=== PATIENT | male | born 1940 | race Caucasian/White ===

== ENCOUNTER 2016-06-22 06:42 | Emergency (ER) | payer MEDICARE ==
[~2016-06-22] VITALS: Ht 175.3 cm; Wt 77.3 kg
[~2016-06-22 06:42] MED LIST: CHOL5000 PO; HYDR25TA4 PO; OMEP20TA86 PO; SIMV20TA4 PO
[2016-06-22] MEDS ORDERED: MetoCLOpramide 5 mg/mL 2 mL Inj IVPUSH ONE (06:50)
[2016-06-22] MEDS ORDERED: Ondansetron 2 mg/mL 2 mL Inj IVPUSH PRN (06:50)
[2016-06-22] MEDS ORDERED: HYDROmorphone 0.5 mg/0.5 mL iSecure Syringe IVPUSH PRN (06:50)
[2016-06-22] MEDS ORDERED: Acetaminophen IV 1,000 MG in IV Premix 1 EACH IV ONE (06:50)
[2016-06-22] MEDS ORDERED: Pantoprazole 4 mg/mL 10 mL Inj IVPUSH ONE (06:50)
[2016-06-22] MEDS ORDERED: 0.9% Sodium Chloride 1,000 ML IV ONE (06:50)
--- NOTE | 2016-06-22 06:50 | ED.REPORT ---
HPI-Abd Pain M 40 and Over Date of Service Jun 22, 2016 ED Provider: The patient is a 76 year old male with history of recurrent small bowel obstructions, upper GI bleeding due to gastritis, prostate cancer sp resection, hypertension, and hyperlipidemia, who presents to the emergency department by EMS complaining of abdominal pain that started at midnight last night. His pain is currently 6/10. He also complains of associated nausea and vomiting. He was able to have a bowel movement this morning and is able to pass gas. He has been hospitalized several times for similar symptoms and diagnosed with small bowel obstructions. He is normally treated with IV fluids and NPO until his symptoms resolved. He occasionally needs an NG tube. This is his 5th episode, he has been hospitalized at [facility] once and in [place] three times. He denies bloody emesis, fever, chills, cough, shortness of breath or chest pain. Nursing Notes Stated Complaint: ABDOMINAL PAIN Chief Complaint: Male Abdominal Pain Nursing Notes Reviewed: Yes Allergies: Coded Allergies: No Known Allergies (Verified , 06/22/16) Scheduled Cholecalciferol (Vitamin D3) (Vitamin D3) 5,000 Unit Capsule 5,000 UNIT PO DAILY Hydrochlorothiazide (Hydrochlorothiazide) 25 Mg Tablet 12.5 MG PO DAILY Omeprazole (Omeprazole) 20 Mg Tablet.dr 20 MG PO DAILY Simvastatin (Simvastatin) 20 Mg Tablet 20 MG PO DAILY General Time Seen by MD: 06:50 Chief Complaint Abdominal pain Hx Obtained From: Patient, EMS Arrived By: Ambulance Sudden in Onset?: Yes Symptom Duration: Since onset Progression since Onset: Constant Location: : Diffuse Quality: Painful Severity: Current: Moderate Severity: Maximum: Moderate Recent Healthcare: No recent doctor visit, No recent hospitalization Similar Sx Previous: Yes Past Medical History Past Medical History Hypertension Hyperlipidemia Small bowel obstruction, recurrent Prostate CA s/p resection Hx of upper GI bleeding due to gastritis Past Surgical History Prostatectomy Laparoscopic abdominal exploratory surgery Family History Noncontributory Smoking History Former Smoker Social History Lives in [place] during the winter months Other Social History: Good social support, Local resident Ambulatory Status Independent Review of Systems Constitutional: Denies: Chills, Fever Respiratory: Denies: Non-productive cough, Shortness of breath Cardiovascular: Denies: Chest pain GI: Reports: Abdominal pain, Nausea, Vomiting, Denies: Constipation, Hematemesis Complete sys rev & neg: except as marked. Physical Exam Initial Vital Signs Vital Signs (First) Date Time Temp Pulse Resp B/P Pulse Ox O2 Delivery O2 Flow Rate FiO2 06/22/16 06:52 36.4 65 18 137/74 95 Room Air Initial VS: Reviewed Head / Eyes: Atraumatic, Normocephalic, PERRL ENT: Mucous membranes moist, Conjunctiva normal, No scleral icterus Neck: Supple, Non-tender, Full range of motion Lymphatic: No lymphadenopathy Extremities: Vascular intact, Neuro intact, No swelling, No tenderness Skin: Warm, Dry, No cyanosis Neurologic: Alert, Oriented, Nonfocal Psychiatric: Mood/affect normal, Behavior normal, Normal thought content General/Constitutional: Awake, Alert Respiratory / Chest: Atraumatic, Breath sounds NL, Breath sounds = bilat, No respiratory distress, No rales, No rhonchi, No wheezing Cardiovascular: Heart rate NL, Regular rhythm, Heart sounds NL, No gallop, No murmurs, No rubs, Peripheral circulation NL Abdomen: Soft, Non-tender, No guarding, No rebound, BS normoactive, No distention, No hernia, No palpable mass, No pulsatile mass Back: Atraumatic, Inspection NL, Full range of motion, No midline vertebral tend Interpretation & Diagnostics Lab Results Interpretation Result Diagram: 06/22/16 0640 06/22/16 0640 Test 06/22/16 06:40 06/22/16 08:46 White Blood Count 8.9th/mm3 (3.8-10.1) Red Blood Count 5.79mil/mm3 (4.40-5.80) Hemoglobin 18.4g/dL (13.8-17.2) Hematocrit 54.5% (41.0-50.0) Mean Corpuscular Volume 94.1fL (81-100) Mean Corpuscular Hemoglobin 31.8pg (27.0-35.0) Mean Corpuscular Hemoglobin Concent 33.8% (32.0-37.0) Red Cell Distribution Width 14.1% (12.3-15.4) Platelet Count 186bil/L (150-400) Neutrophils (%) (Auto) 76.2% (40-74) Lymphocytes (%) (Auto) 13.0% (14-46) Monocytes (%) (Auto) 8.7% (4-12) Eosinophils (%) (Auto) 1.7% (0-5) Basophils (%) (Auto) 0.3% (0-3) Sodium Level 139mEq/L (134-144) Potassium Level 4.4mEq/L (3.5-5.2) Chloride Level 100mEq/L (97-108) Carbon Dioxide Level 22mmol/L (18-29) Blood Urea Nitrogen 19mg/dL (8-27) Creatinine 1.03mg/dL (0.76-1.27) Estimat Glomerular Filtration Rate 75mL/min (>59) Glucose Level 118mg/dL (60-99) Calcium Level 9.9mg/dL (8.5-10.1) Total Bilirubin 0.6mg/dL (0.0-1.2) Aspartate Amino Transf (AST/SGOT) 21U/L (0-50) Alanine Aminotransferase (ALT/SGPT) 17U/L (0-44) Alkaline Phosphatase 44U/L (25-160) Total Protein 7.9g/dL (6.4-8.4) Albumin 4.5g/dL (3.4-5.0) Lipase 44U/L (13-60) Urine Color Yellow (YELLOW) Urine Appearance Clear (CLEAR,HAZY) Urine pH 7.0 (5.0-8.0) Urine Specific [place] 1.015 (1.003-1.035) Urine Protein 30mg/dL (NEG,TRACE) Urine Glucose (UA) Negativemg/dL (NEGATIVE) Urine Ketones Negativemg/dL (NEGATIVE) Urine Occult Blood Trace (NEGATIVE) Urine Nitrite Negative (NEGATIVE) Urine Bilirubin Negative (NEGATIVE) Urine Urobilinogen Normalmg/dL (NORMAL) Urine Leukocyte Esterase Negative (NEGATIVE) Urine RBC 3-10/hpf (0-2) Urine WBC 0-5/hpf (0-5) Urine Epithelial Cells Occasional/hpf (NONE-MOD) Urine Crystals None seen (NONE SEEN) Urine Bacteria None/hpf (NONE-FEW) Urine Hyaline Casts Occasional/lpf (NONE) Urine Granular Casts None seen (NONE SEEN) Urine Waxy Casts None seen (NONE SEEN) Urine Red Blood Cell Casts None seen (NONE SEEN) Urine White Blood Cell Casts None seen (NONE SEEN) Urine Mucus Present (None Seen) Urine Trichomonas None seen (NONE SEEN) Urine Yeast None (NONE SEEN) Urinalysis Comment None Urine Culture Reflexed Not indicated ECG Interpretation ECG Interpretation: Normal sinus rhythm with a rate of 70 Time: 06:58 Interpreted by: ED physician X-Ray Abdominal Interpretation IMPRESSION: 1. Nonspecific bowel gas pattern with scattered small bowel air-fluid levels and mild dilatation in the left lower quadrant but with gas and stool demonstrated in the colon. Differential considerations include an early or partial obstruction, gastroenteritis, or an ileus. Dictated by: Hector Mcgee M.D. on 06/22/2016 at 8:36 Interpretation / Wet Read by: Interpret - Radiologist Re-Eval/Medical Decision Source of Hx: Old records, EMS Time of Eval: 09:21 Re-Evaluation/Progress Note: Rechecked the patient. He is feeling better. Discussed plan for road test and PO challenge. Time of Eval: 10:08 Re-Evaluation/Progress Note: The patient was able to walk around the department with no issues. He was also able to tolerate PO. Discussed plan for discharge. He understands and agrees with plan. Return to emergency department precautions were given. Counseled Regarding: Diagnosis, Lab results, Need for follow-up, When/why to return to ED Discharge & Departure Primary Impression: Generalized abdominal pain Disposition: Home Vital Signs - All Vital Signs Date Time Temp Pulse Resp B/P Pulse Ox O2 Delivery O2 Flow Rate FiO2 06/22/16 08:09 53 15 123/59 99 Room Air 06/22/16 06:52 36.4 65 18 137/74 95 Room Air )( All Prior VS Reviewed: Yes Condition: Stable Patient Instructions: Acute Abdominal Pain (ED) Additional Instructions: Thank you for entrusting us with your care today. Your labs are reassuring. Your x-ray does not show evidence of an obvious obstruction at this time. Take the Levsin (hyoscyamine) as prescribed for your cramps or spasm. Drink fluids as tolerated. Followup with your regular doctor early next week for re- evaluation. Please return to the emergency department if you develop increased pain, vomiting, fever, or any other new or concerning symptoms. You can also use hydrocodone/APAP 1-3 tabs as needed for severe pain and you could also use ondansetron as needed for nausea. Referrals: Rahul Cazares MD (PCP) Scribe Attestation Portions of this note were transcribed by Clara Roach. I, Dr. Boyer personally performed the history, physical exam and medical decision-making; I reviewed and confirmed the accuracy of the information in the transcribed note. Signed by: Letty Falcon, 06/22/2016 at 1020. copies to: Rahul Cazares MD, Kirk H MD Jun 22, 2016 06:50 Clara Roach Jun 22, 2016 06:58
[2016-06-22 06:52] VITALS: BP 137/74; PULSE 65; RESP 18; O2SAT 95
[2016-06-22 07:07] LABS: BASOPHILS % (AUTO) 0.3 % (0-3); EOSINOPHILS % (AUTO) 1.7 % (0-5); MONOCYTES % (AUTO) 8.7 % (4-12); Mean Corpuscular Hemoglobin 31.8 pg (27.0-35.0); Mean Corpuscular Volume 94.1 fL (81-100); NEUTROPHILS % (AUTO) 76.2 % (40-74); Platelet Count 186 bil/L (150-400)
[2016-06-22 08:09] VITALS: BP 123/59; PULSE 53; RESP 15; O2SAT 99
--- NOTE | 2016-06-22 08:42 | DRSVH ---
PROCEDURE: X-RAY ACUTE ABDOMINAL SERIES ([id number]) INDICATIONS: Abdominal pain TECHNIQUE: One view chest and two views of the abdomen were acquired. COMPARISON: Outside Film, CT, CT ABD PELVIS W CON, 04/05/2016, 3:43. Outside Film, CR, XR ABD ACUTE SERIES 3VW, 04/04/2016, 22:38. FINDINGS: Surgical changes and devices: Multiple surgical clips are demonstrated in the pelvis. Chest: Lungs are clear. Heart size is normal. No pleural effusions. No pneumoperitoneum. Abdomen: Bowel gas pattern demonstrates gas within small and large bowel loops. There is slight dis tention of small bowel loop in the left lower quadrant measuring up to 3.7 cm. There are scattered s mall bowel air-fluid levels. No suspicious calcifications. Bones: No suspicious bony lesions. IMPRESSION: 1. Nonspecific bowel gas pattern with scattered small bowel air-fluid levels and mild dilatation in the left lower quadrant but with gas and stool demonstrated in the colon. Differential consideration s include an early or partial obstruction, gastroenteritis, or an ileus. Dictated by: Hetcor Mcgee M.D. on 06/22/2016 at 8:36 Approved by: Hector Mcgee M.D. on 06/22/2016 at 8:41
[2016-06-22 09:28] LABS: APPEARANCE,URINE CLEAR (CLEAR,HAZY); COLOR,URINE YELLOW (YELLOW); OCCULT BLOOD,URINE TRACE (NEGATIVE); UROBILINOGEN,URINE NORMAL (NORMAL)
[2016-06-22] MEDS ORDERED: HYOS0.1218 SL (10:21)
[2016-06-22] MEDS ORDERED: ONDA4TAB9 PO (10:21)
[2016-06-22] MEDS ORDERED: HYDR-4003 PO (10:21)
[2016-06-22 10:39] VITALS: BP 122/61; PULSE 56; RESP 14; O2SAT 99
[2016-06-22] MEDS ORDERED: ACET-171 PO (12:32)
[2016-07-19] MEDS ORDERED: ASPI-973 PO (14:15)
== END 2016-06-22 10:40 | disposition home or self-care (01) ==
LOC: SED 06:42
DX: R10.84 Generalized abdominal pain (principal); I10 Essential (primary) hypertension; E78.5 Hyperlipidemia, unspecified; Z85.46 Personal history of malignant neoplasm of prostate; Z87.891 Personal history of nicotine dependence
CPT/HCPCS: 36415; 74022; 80053; 81000; 83690; 85025; 93005; 96361; 96374; 96375; 99285; J0131; J1170; J2765; J7030

== ENCOUNTER 2016-06-22 11:49 | Inpatient (IN) | payer MEDICARE ==
[~2016-06-22] VITALS: Ht 175.3 cm; Wt 78.7 kg
[~2016-06-22 11:49] MED LIST changes: +HYDR-4003 PO; +HYOS0.1218 SL; +ONDA4TAB9 PO
[2016-06-22 11:54] VITALS: BP 120/84; PULSE 80; RESP 16; O2SAT 95
--- NOTE | 2016-06-22 12:02 | ED.REPORT ---
HPI-Abd Pain M 40 and Over Date of Service Jun 22, 2016 ED Provider: The patient returns to the emergency department after being discharged a few hours prior. He was seen for generalized abdominal pain, nausea, and vomiting, all of which are consistent with previous episodes of bowel obstructions. After medication he was feeling better and able to tolerate PO. His symptoms began again about 30 minutes prior to arrival. He returns for reevaluation and treatment. Nursing Notes Stated Complaint: NAUSEA Chief Complaint: Male Abdominal Pain Nursing Notes Reviewed: Yes Allergies: Coded Allergies: No Known Allergies (Verified , 06/22/16) Scheduled Cholecalciferol (Vitamin D3) (Vitamin D3) 5,000 Unit Capsule 5,000 UNIT PO DAILY Hydrochlorothiazide (Hydrochlorothiazide) 25 Mg Tablet 12.5 MG PO DAILY Simvastatin (Simvastatin) 20 Mg Tablet 20 MG PO DAILY Scheduled PRN Acetaminophen (Acetaminophen) 500 Mg Tablet 1,000 MG PO DAILY PRN PRN For Fever General Time Seen by MD: 12:02 Chief Complaint Abdominal pain Hx Obtained From: Patient, Spouse Arrived By: Walk-in Sudden in Onset?: Yes Onset Occurred: 16 - 30 minutes ago Symptom Duration: Since onset Progression since Onset: Constant, Gradually worsening Location: : Diffuse Quality: Painful Severity: Current: Severe Severity: Maximum: Severe Recent Healthcare: No recent hospitalization, Recent doctor visit Past Medical History Past Medical History Hypertension Hyperlipidemia Small bowel obstruction, recurrent Prostate CA s/p resection Hx of upper GI bleeding due to gastritis Past Surgical History Prostatectomy Laparoscopic abdominal exploratory surgery Family History Noncontributory Smoking History Former Smoker Social History Lives in [place] during the winter months Other Social History: Good social support, Local resident Ambulatory Status Independent Review of Systems GI: Reports: Abdominal pain, Nausea, Vomiting Complete sys rev & neg: except as marked. Physical Exam Initial Vital Signs Vital Signs (First) Date Time Temp Pulse Resp B/P Pulse Ox O2 Delivery O2 Flow Rate FiO2 06/22/16 11:54 36.4 80 16 120/84 95 Room Air Initial VS: Reviewed Head / Eyes: Atraumatic, Normocephalic, PERRL ENT: Mucous membranes moist, Conjunctiva normal, No scleral icterus Neck: Supple, Non-tender, Full range of motion Lymphatic: No lymphadenopathy Extremities: Vascular intact, Neuro intact, No swelling, No tenderness Skin: Warm, Dry, No cyanosis Neurologic: Alert, Oriented, Nonfocal Psychiatric: Mood/affect normal, Behavior normal, Normal thought content General/Constitutional: Awake, Alert Appearance / Presentation: Positive: Uncomfortable Respiratory / Chest: Atraumatic, Breath sounds NL, Breath sounds = bilat, No respiratory distress, No rales, No rhonchi, No wheezing Cardiovascular: Heart rate NL, Regular rhythm, Heart sounds NL, No gallop, No murmurs, No rubs, Peripheral circulation NL Abdomen: Soft, No guarding, No rebound, BS normoactive, No distention, No hernia, No palpable mass, No pulsatile mass Tenderness/Guarding/Rebound: Positive: Tender diffuse Back: No midline vertebral tend Re-Eval/Medical Decision Source of Hx: Old records, Family Time of Eval: 12:47 Re-Evaluation/Progress Note: Discussed plan for admission. All questions were addressed. Consultation : Referral / Consult Name: Jared Hart MD Consulted With: Technology Specialist Call Returned at: 13:22 Cooker Soda: Will see patient, Agrees with eval, Agrees with plan, Accepts admit Counseled Regarding: Diagnosis, Lab results, Need for admission Discharge & Departure Primary Impression: Generalized abdominal pain Disposition: ADMITTED TO HOSPITAL Vital Signs - All Vital Signs Date Time Temp Pulse Resp B/P Pulse Ox O2 Delivery O2 Flow Rate FiO2 06/22/16 11:54 36.4 80 16 120/84 95 Room Air )( All Prior VS Reviewed: Yes Condition: Stable Referrals: Rahul Cazares MD (PCP) Scribe Attestation Portions of this note were transcribed by Clara Roach. I, Dr. Boyer personally performed the history, physical exam and medical decision-making; I reviewed and confirmed the accuracy of the information in the transcribed note. Signed by: Letty Falcon, 06/22/2016 at 1330. copies to: Rahul Cazares MD, Kirk H MD Jun 22, 2016 12:02 Clara Roach Jun 22, 2016 12:07
[2016-06-22] MEDS ORDERED: 0.9% Sodium Chloride 1,000 ML IV ONE (12:04)
[2016-06-22] MEDS ORDERED: HYDROmorphone 1 mg/mL Inj IVPUSH PRN (12:05)
[2016-06-22] MEDS ORDERED: Ondansetron 2 mg/mL 2 mL Inj IVPUSH PRN ×2 (12:05→13:50)
[2016-06-22] MEDS ORDERED: ACET-171 PO (12:32)
[2016-06-22] MEDS ORDERED: Alum-Mag Hydrox-Simeth 30 mL Suspension PO PRN (13:50)
[2016-06-22] MEDS ORDERED: hydrALAZINE 20 mg/mL Inj IV PRN (14:20)
[2016-06-22] MEDS ORDERED: MeTOProlol 1 mg/mL 5 mL Inj IVPUSH PRN (14:20)
--- NOTE | 2016-06-22 14:32 | PCM.HPMED ---
Subjective Date of Service Jun 22, 2016 Primary Provider: Admitting Physician: Primary Care Physician: Rahul Cazares MD Attending Physician: History of Present Illness: Chief Complaint: Recurrent abdominal pain with vomiting HISTORY was OBTAINED FROM PATIENT / [place] NOTES History of present illness: 76-year-old male with 3 year hx of SBO started after prostatectomy operation, now w/ recurrent epigastric abdominal pain with vomiting without blood, extensive workup including laparoscopy in [place] months ago, presented to the emergency department this morning was discharged but symptoms returned so patient returned to the ER this afternoon. NO EGD hx. never GERD/never indigestion hx. no chnage in diet/ no spoiled food ingestion. feels bloated, starts improving w/ bloating improves, never burping hx, flatus currently present. prior SBOs last 3-5+ days. In the ER vital signs stable, Dilaudid, Zofran, Ativan, saline Last hospitalized November 052015 for recurrent partial SBO seen by general surgery likely due to right upper quadrant adhesions treated with decompression NG tube and conservative management - Dr Brar, upper GI bleeding due to gastritis, Review of Systems - none of the following - F/C/sick contact / wt change/ DUTTA / lightheaded / dizziness / sob / cough / cp / diarrhea / bleeding/bruising / leg swelling / change in voiding / yeast infections / rash Ambulates by self FAMILY HX: No past family medical history of SBO or Colon cancer SOCIAL HX: 2-3 beers per day, former smoker MEDICATIONS: 1. Zocor 20 mg p.o. at bedtime. 2. Hydrochlorothiazide 12.5 mg p.o. daily. 3. Aspirin 81 mg p.o. daily. 4. Cholecalciferol 5000 units p.o. daily. no PPI, dcd by PCP PAST MEDICAL/SURGICAL HISTORY: Hypertension Hyperlipidemia Small bowel obstruction, recurrent Prostate CA s/p resection Surgical History Prostatectomy Exam on admission: on RA NAD A and O x 3 mood affect WNL NC/AT / No icterus / No injected eyes / EOMI PERRL / No pharyngeal lesions/ No oral lesions / hearing intact // dry mouth Supple neck CTAB equal chest rise / no accessory muscle use / speaks in full sentences / no RRW RRR S1 S2 / no MRG / 2+ radial pulses Soft mild tenderness epigastric, distended hypoactive BS no hepatosplenomegaly Lower extremities - No edema No cyanosis No ecchymosis No rash / No jaundice MEADOWS Symmetrical facies STUDIES: Trop normal UA negative leukocyte Estrace negative nitrite negative yeast Left shift Erythrocytosis LFT normal, lipase 44, Cr 1.03 IMAGING: PROCEDURE: X-RAY ACUTE ABDOMINAL SERIES ([id number]) INDICATIONS: Abdominal pain TECHNIQUE: One view chest and two views of the abdomen were acquired. COMPARISON: Outside Film, CT, CT ABD PELVIS W CON, 04/05/2016, 3:43. Outside Film, CR, XR ABD ACUTE SERIES 3VW, 04/04/2016, 22:38. FINDINGS: Surgical changes and devices: Multiple surgical clips are demonstrated in the pelvis. Chest: Lungs are clear. Heart size is normal. No pleural effusions. No pneumoperitoneum. Abdomen: Bowel gas pattern demonstrates gas within small and large bowel loops. There is slight distention of small bowel loop in the left lower quadrant measuring up to 3.7 cm. There are scattered small bowel air-fluid levels. No suspicious calcifications. Bones: No suspicious bony lesions. IMPRESSION: 1. Nonspecific bowel gas pattern with scattered small bowel air-fluid levels and mild dilatation in the left lower quadrant but with gas and stool demonstrated in the colon. Differential considerations include an early or partial obstruction, gastroenteritis, or an ileus. DATE OF SERVICE: 11/07/15 08 PROCEDURE: CT ABDOMEN AND PELVIS WITH CONTRAST ([id number]) INDICATIONS: known SBO recurrent sx TECHNIQUE: After the administration of oral and intravenous contrast, 5 mm thick sections acquired from the diaphragms to the symphysis. 5 mm thick coronal and sagittal reformats were performed. For radiation dose reduction, the following was used : automated exposure control, adjustment of mA and/or kV according to patient size. COMPARISON: Outside Film, CT, ABD/PELVIS W&WO CON (PNL), 05/08/2014, 19:40. [facility], CT, CT ABD PELVIS W CON, 11/04/2015, 2:37. FINDINGS: Image quality: Excellent. ABDOMEN: Lung bases: There are small bilateral low density pleural effusions and mild basilar compressive atelectasis which is new when compared with the study dated 11/04/15. Solid organs: Liver and spleen are normal in size and enhancement. 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 There is new low density perihepatic free fluid and increased perisplenic free fluid when compared with the prior study dated 11/04/15. Gallbladder is unremarkable. Biliary system is non-dilated. Pancreas enhances normally. No adrenal nodules. Kidneys are normal in size and enhancement, without hydronephrosis. There are multiple bilateral pararenal cysts. There are nonobstructive bilateral ureteral calculi. No ureterolithiasis or hydroureter. Peritoneum and bowel: The stomach is partially decompressed and partially contrast filled. The proximal small bowel is decompressed and is filled with oral contrast. The midportion of the small bowel is moderately dilated, similar in extent to the study dated 11/04/15. The proximal half of the dilated small bowel is now filled with contrast. The distal half of the dilated small bowel is filled with non-opacified fluid and solid appearing stool. The terminal ileum is decompressed, as before. There is a smooth proximal transition between decompressed and dilated bowel. A focal transition point at the distal dilated small bowel is in the right upper quadrant (series 3, image 30). Overall, the extent of mid small bowel dilatation is Maddi decrease in extent when compared with the study dated 11/04/15. The colon demonstrates normal caliber and wall thickness and is partially stool and gas filled. There are scattered colonic diverticula. No pericolonic fat stranding or free fluid to suggest acute diverticulitis. The appendix is thin walled and gas filled. No pneumatosis or pneumoperitoneum. There is a moderate amount of low-density free pelvic fluid. Nodes and vessels: No retroperitoneal or mesenteric adenopathy. Aorta and inferior vena cava are normal in caliber. Miscellaneous: There is a small fat-containing ventral hernia. PELVIS: Genitourinary: Bladder wall thickness is normal. Miscellaneous: No inguinal adenopathy. There are small bilateral fat- containing inguinal hernias. Multiple surgical clips are present throughout the pelvis. Nuchal bilateral small low density pleural effusions and compressive atelectasis. Bones: No suspicious bony lesions. Severe degenerative changes are present within the lower lumbar spine. No vertebral body compression fractures. IMPRESSION: 1. Persistent, but slightly decreased dilatation of the midportion of the small bowel when compared with the study dated 11/04/15. Oral contrast is now present within the proximal half of the dilated small bowel. The distal half of the dilated small bowel is filled with fluid and solid appearing stool suggesting delayed transit. A discrete transition point is present within the right upper quadrant and the terminal ileum is decompressed. 2. Increased free abdominal pelvic fluid when compared with the prior study likely associated with small bowel obstruction. No pneumatosis or pneumoperitoneum. 3. Normal appendix. Mild colonic diverticulosis. Active issues and reason for admission Recurrent SBO, unable to keep in oral intake, anticipate 3-5 days prior to recovery as gradual abdominal distention improves --D51/2 NS --simethicone --famotidine IV --hold NG for now Chronic issues known prior to admission, present on admission HTN DLP --home statin/hctz metoprolol/hydralazine prn Diet NPO DVT prophylaxis lovenox scd ambulate Code full Disposition inpt Assessment and plan were discussed with patient family. Allergies Coded Allergies: No Known Allergies (Verified , 06/22/16) PMH Social History Hx Alcohol Use: Yes (2-3 beers daily) Hx Substance Use: No Smoking Status: Former Smoker Exam Vital Signs Vital Sign - Last Date Time Temp Pulse Resp B/P Pulse Ox O2 Delivery O2 Flow Rate FiO2 06/22/16 11:54 36.4 80 16 120/84 95 Room Air Jared Hart MD Jun 22, 2016 13:30
--- NOTE | 2016-06-22 14:56 | NUR ---
Transfer from ER Report received from ER nurse. Awaiting patient from ER.
[2016-06-22 15:03] VITALS: BP 120/84; PULSE 80; RESP 16; O2SAT 95
[2016-06-22 15:09] VITALS: BP 130/75; PULSE 71; RESP 18; O2SAT 96
[2016-06-22 15:13] VITALS: BP 146/79; PULSE 66; RESP 18; O2SAT 96
--- NOTE | 2016-06-22 15:13 | NUR ---
To [facility] Patient arrived to [facility] approx 1510. per ER report pain medication given approx 2 hours ago. Per patient pain 6/10 and tolerable pain level 10/10. Denies nausea or vomiting at this time. Temp 97.4. BP 144/69, pulse 66.
[2016-06-22] MEDS: D5 0.45% NaCl + KCl 20 mEq/L 1,000 ML IV SCH (15:44)
[2016-06-22] MEDS: Heparin 5,000 Unit/mL Inj SUBQ SCH (17:42)
--- NOTE | 2016-06-22 17:46 | NUR ---
Mentation Alert and oriented X3. Able to make needs known. patient sleeping comfortably and no sign and symptoms of pain noted or reported by patient. Last BM early this morning per patient. Stable Vital signs.
--- NOTE | 2016-06-22 18:28 | NUR ---
pain patient c/o mild pain to abdomen and nausea. Paged Dr. Hart for pain medication orders and verbal orders received for Dilaudid PRN 0.5 mg IV every 4 hours PRN for pain. will follow orders for pain management and nausea.
[2016-06-22] MEDS ORDERED: HYDROmorphone 0.5 mg/0.5 mL iSecure Syringe IVPUSH PRN (18:35)
--- NOTE | 2016-06-22 18:59 | NUR ---
Case Management: IMM explained to patient at 1830, all questions answered. Signed original placed in chart, copy given to patient. Kita Mcmahan RN
[2016-06-22 19:39] VITALS: BP 134/79; PULSE 86; RESP 16; O2SAT 94
[2016-06-22 20:08] LABS: APPEARANCE,URINE CLEAR (CLEAR,HAZY); COLOR,URINE YELLOW (YELLOW); OCCULT BLOOD,URINE LARGE (NEGATIVE); PH,URINE 5.5 (5.0-8.0); UROBILINOGEN,URINE NORMAL (NORMAL)
[2016-06-22] MEDS: Famotidine Inj 20 MG in IV Premix 1 EACH IV SCH (22:07)
[2016-06-23] MEDS: Heparin 5,000 Unit/mL Inj SUBQ SCH ×3 (00:29→15:40)
[2016-06-23 00:48] VITALS: BP 128/68; PULSE 78; RESP 18; O2SAT 95
--- NOTE | 2016-06-23 04:27 | NUR ---
GI No c/o nausea or abdominal pain through shift, reports passing some flatus. IV fluids infusing, NPO status tolerable to pt; feeling like he would like to advance diet, pt states he will discuss this with am Md. Observed sleeping in night, adequate urine output. Hourly rounding ongoing.
[2016-06-23] MEDS: D5 0.45% NaCl + KCl 20 mEq/L 1,000 ML IV SCH (04:58)
[2016-06-23 04:59] VITALS: BP 106/64; PULSE 71; RESP 16; O2SAT 92
[2016-06-23 06:43] LABS: Mean Corpuscular Hemoglobin 32.1 pg (27.0-35.0); Mean Corpuscular Volume 97.6 fL (81-100)
[2016-06-23] MEDS: Famotidine Inj 20 MG in IV Premix 1 EACH IV SCH ×2 (07:28→20:11)
[2016-06-23 11:20] VITALS: BP 128/76; PULSE 71; RESP 18; O2SAT 96
--- NOTE | 2016-06-23 11:52 | NUR ---
Mentation Patient is alert and orientedX3. Able to make needs known. Denies abdominal pain or any discomfort. Stable vital signs with stable oxygenation. patient has been NPO and asking r/t advance diet. Notified Dr. Ramirez and aware. Stable mood. family at bed side. stable and steady on feet. patient ambulated 2-[address] with out any difficulty. Call light with in reach for safety and uses appropriately. Will continue to monitor for pain, vital signs, and safety.
[2016-06-23] MEDS ORDERED: Ketorolac 15 mg/mL Inj IV PRN (13:30)
[2016-06-23] MEDS: 0.9% Sodium Chloride 1,000 ML IV SCH (14:35)
--- NOTE | 2016-06-23 18:30 | NUR ---
Social Work: Initial Assessment Data & Assessment: See Initial Assessment. EMR reviewed. Patient is a 76 y/o male that admitted on 06/22/16 for ABD pain per H&P. SW met with patient at bedside to complete initial assesment, Discharge plan discussed, and SW role explained. Patient states that his NOK/DPOA is his , Delmi Fiore, and a copy of patient Advance Directive/DPOA is on file. Patient does not have VA or LTC benefits. Patient has a readmit score of [address] Patient see Dr. Rahul Cazares for primary care. Patient lives at home with his in a two story home. Everything that he patient needs is on the first level, but the patient has 10 steps inside the home. Patient is independent at baseline and has no DME. Patient has no SNF or HH history. Patient does drive. Patient does not have any discharge needs at the current time. SW provided contact information on [facility]. SW will continue to follow. Plan: Patient is likely to discharge home with spouse no needs via POV. SW will continue to follow. He Peo LMSW, KIKE Addendum: 06/23/16 at 1839 by HE BILLS Amended: Links added.
[2016-06-23 20:21] VITALS: BP 141/83; PULSE 55; RESP 16; O2SAT 98
--- NOTE | 2016-06-23 21:07 | PCM.PNMED ---
Subjective Date of Service Jun 23, 2016 Subjective Patient states he has no pain, very hungry. wanting to eat. Says he had a colonosocpy w/o issues 2 yrs ago. Never ad hx of gastritis or upper GI bleed. Says pain usually goes away with ER visit but it did not this time. Not currently nauseated. No other concerns. No cardiac history. denies gerd, denies hematochezia, hematemesis Exam Vital Signs Vital Sign - Last Date Time Temp Pulse Resp B/P Pulse Ox O2 Delivery O2 Flow Rate FiO2 06/23/16 04:59 36.7 71 16 106/64 92 Room Air Intake and Output 06/22/16 06/22/16 06/23/16 Cumulative From/Thru 15:00 23:00 07:00 06/22/16 11:54 - 06/23/16 06:40 Intake Total 500 ml 1924 ml 2424 ml Output Total 570 ml 570 ml Balance 500 ml 1354 ml 1854 ml Intake Oral 0 ml 0 ml IV Total 500 ml 1924 ml 2424 ml Output Urine Total 570 ml 570 ml # Bowel Movements 0 0 Exam General: NAD, laying in bed HEENT: NCAT Eyes: [place] conjunctivae. No ptosis, PERRL Neck: No masses, trachea midline, no thyromegaly Lungs: CTA with normal respiratory effort, no crackles or wheezes CV: RRR, no murmurs/rubs/gallops, normal PMI GI: Soft, non-tender with no hepatosplenomegaly. Normal bowel sounds MSK: no digital cyanosis Skin: Warm and dry. No rash, lesions or ulcers Psych: A&O X3, with appropriate affect Neuro: No focal deficits IVs and Medications IV Fluids 60 mL per hour normal saline Medications Reviewed: Medications were reviewed in detail Lab and Diagnostics Result Diagram: 06/23/1657 06/23/16556 X-Rays, CTs and MRIs [facility] [place] [address] Patient Name: LAZARA WALTON MR#: [id number] Location: [facility] [place] Ordering Phys: Oc Boyer MD Date of Service: 06/22/16 0650 PROCEDURE: X-RAY ACUTE ABDOMINAL SERIES ([id number]) INDICATIONS: Abdominal pain TECHNIQUE: One view chest and two views of the abdomen were acquired. COMPARISON: Outside Film, CT, CT ABD PELVIS W CON, 04/05/2016, 3:43. Outside Film, CR, XR ABD ACUTE SERIES 3VW, 04/04/2016, 22:38. FINDINGS: Surgical changes and devices: Multiple surgical clips are demonstrated in the pelvis. Chest: Lungs are clear. Heart size is normal. No pleural effusions. No pneumoperitoneum. Abdomen: Bowel gas pattern demonstrates gas within small and large bowel loops. There is slight distention of small bowel loop in the left lower quadrant measuring up to 3.7 cm. There are scattered small bowel air-fluid levels. No suspicious calcifications. Bones: No suspicious bony lesions. IMPRESSION: 1. Nonspecific bowel gas pattern with scattered small bowel air-fluid levels and mild dilatation in the left lower quadrant but with gas and stool demonstrated in the colon. Differential considerations include an early or partial obstruction, gastroenteritis, or an ileus. Dictated by: Hector Mcgee M.D. on 06/22/2016 at 8:36 Approved by: Hector Mcgee M.D. on 06/22/2016 at 8:41 [facility] Diagnostic [place] [address] PATIENT NAME: LAZARA WALTON MR#: [id number] LOCATION: [facility] [place] ORDERING PHYS: Chance Day MD DATE OF SERVICE: 11/07/15813 PROCEDURE: CT ABDOMEN AND PELVIS WITH CONTRAST ([id number]) INDICATIONS: known SBO recurrent sx TECHNIQUE: After the administration of oral and intravenous contrast, 5 mm thick sections acquired from the diaphragms to the symphysis. 5 mm thick coronal and sagittal reformats were performed. For radiation dose reduction, the following was used : automated exposure control, adjustment of mA and/or kV according to patient size. COMPARISON: Outside Film, CT, ABD/PELVIS W&WO CON (PNL), 05/08/2014, 19:40. [facility], CT, CT ABD PELVIS W CON, 11/04/2015, 2:37. FINDINGS: Image quality: Excellent. ABDOMEN: Lung bases: There are small bilateral low density pleural effusions and mild basilar compressive atelectasis which is new when compared with the study dated 11/04/15. Solid organs: Liver and spleen are normal in size and enhancement. 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 There is new low density perihepatic free fluid and increased perisplenic free fluid when compared with the prior study dated 11/04/15. Gallbladder is unremarkable. Biliary system is non-dilated. Pancreas enhances normally. No adrenal nodules. Kidneys are normal in size and enhancement, without hydronephrosis. There are multiple bilateral pararenal cysts. There are nonobstructive bilateral ureteral calculi. No ureterolithiasis or hydroureter. Peritoneum and bowel: The stomach is partially decompressed and partially contrast filled. The proximal small bowel is decompressed and is filled with oral contrast. The midportion of the small bowel is moderately dilated, similar in extent to the study dated 11/04/15. The proximal half of the dilated small bowel is now filled with contrast. The distal half of the dilated small bowel is filled with non-opacified fluid and solid appearing stool. The terminal ileum is decompressed, as before. There is a smooth proximal transition between decompressed and dilated bowel. A focal transition point at the distal dilated small bowel is in the right upper quadrant (series 3, image 30). Overall, the extent of mid small bowel dilatation is Maddi decrease in extent when compared with the study dated 11/04/15. The colon demonstrates normal caliber and wall thickness and is partially stool and gas filled. There are scattered colonic diverticula. No pericolonic fat stranding or free fluid to suggest acute diverticulitis. The appendix is thin walled and gas filled. No pneumatosis or pneumoperitoneum. There is a moderate amount of low-density free pelvic fluid. Nodes and vessels: No retroperitoneal or mesenteric adenopathy. Aorta and inferior vena cava are normal in caliber. Miscellaneous: There is a small fat-containing ventral hernia. PELVIS: Genitourinary: Bladder wall thickness is normal. Miscellaneous: No inguinal adenopathy. There are small bilateral fat- containing inguinal hernias. Multiple surgical clips are present throughout the pelvis. Nuchal bilateral small low density pleural effusions and compressive atelectasis. Bones: No suspicious bony lesions. Severe degenerative changes are present within the lower lumbar spine. No vertebral body compression fractures. IMPRESSION: 1. Persistent, but slightly decreased dilatation of the midportion of the small bowel when compared with the study dated 11/04/15. Oral contrast is now present within the proximal half of the dilated small bowel. The distal half of the dilated small bowel is filled with fluid and solid appearing stool suggesting delayed transit. A discrete transition point is present within the right upper quadrant and the terminal ileum is decompressed. 2. Increased free abdominal pelvic fluid when compared with the prior study likely associated with small bowel obstruction. No pneumatosis or pneumoperitoneum. 3. Normal appendix. Mild colonic diverticulosis. Dictated by: Kizzy Miguel M.D. on 11/07/2015 at 11:44 Approved by: Kizzy Miguel M.D. on 11/07/2015 at 11:44 Assessment & Plan Assessment #1 abdominal pain likely secondary to partial small bowel obstruction as evidenced by the chest x-ray and clinical presentation and previous history, present on admission -- Requested records from his previous exploratory lap surgery from [facility] -- Clear liquids, plans to advance diet to full liquids later today -- Zofran for nausea -- Pain control with ketorolac IV, morphine 2 mg every 3 when necessary -- IV fluids as above -- We will consider surgical consult if patient does not improve. As the weekend is nearing, if he does improve will consider outpatient follow-up for him to general surgery Assessment #2 hypertension, chronic -- Discontinue IV when necessary medications -- Hydrochlorothiazide by mouth home medication daily Assessment #3 hyperlipidemia, chronic: --Plan to restart homestead in tomorrow a.m. if he is tolerating diet Date of prophylaxis: Enoxaparin 40 mg subcutaneous daily Disposition: To home if patient adequately improves tomorrow GI Prophylaxis: H2 edith VTE Prophylaxis: Sub-Q Enoxaparin Marleen Ramirez DO Jun 23, 2016 08:28
[2016-06-24] MEDS: Heparin 5,000 Unit/mL Inj SUBQ SCH ×4 (00:13→23:18)
--- NOTE | 2016-06-24 03:52 | NUR ---
GI Reported increased bloating and tenderness to abdomen, denies nausea. Simethicone given with modest relief, tenderness continues, declined offer of pain medication. Hypoactive bowel tones, passing large volume of flatus. IV fluids infusing, independent activity. Hourly rounding ongoing.
[2016-06-24 05:20] VITALS: BP 160/81; PULSE 74; RESP 16; O2SAT 97
[2016-06-24 06:21] LABS: Mean Corpuscular Hemoglobin 31.5 pg (27.0-35.0); Mean Corpuscular Volume 97.4 fL (81-100)
[2016-06-24] MEDS: 0.9% Sodium Chloride 1,000 ML IV SCH (09:04)
--- NOTE | 2016-06-24 11:25 | NUR ---
ES signed by pt ISAIAH Ramos
--- NOTE | 2016-06-24 11:31 | NUR ---
Social Work - Readiness for Discharge: Data and Assessment: EMR Reviewed. Pt is on day 2 of hospitalization and was admitted for ABD pain as per pt's H&P. SW met with pt regarding discharge planning. Per RN notes pt has been moving and independent in room. Pt will be discharging home either later today or tomorrow with no needs. SW confirmed that will provide transportation via POV at time of discharge. Plan: Pt will be discharged home when medically stable via POV with no needs. ISAIAH Ramos
[2016-06-24] MEDS: D5 0.45% NaCl + KCl 20 mEq/L 1,000 ML IV SCH ×2 (12:14→20:20)
--- NOTE | 2016-06-24 13:00 | DRSVH ---
PROCEDURE: CT ABDOMEN AND PELVIS WITH CONTRAST ([id number]) INDICATIONS: abd pain TECHNIQUE: After the administration of oral and intravenous contrast, 5 mm thick sections acquired from the diap hragms to the symphysis. 5 mm thick coronal and sagittal reformats were performed. For radiation do se reduction, the following was used: automated exposure control, adjustment of mA and/or kV accordi ng to patient size. COMPARISON: Outside Film, CT, CT ABD PELVIS W CON, 04/05/2016, 3:43. FINDINGS: Image quality: Excellent. ABDOMEN: Lung bases: Lung bases are clear. Heart size is normal. Solid organs: Liver and spleen are normal in size and enhancement. Gallbladder wall is slightly pro minent as it interfaces against the liver but is not definitely inflamed and no gallstones are found. Biliary system is non-dilated. Pancreas enhances normally. No adrenal nodules. Kidneys are javed l in size and enhancement, with no change in bilaterally previously present hydronephrosis, with scat tered small collecting system calculi that are nonobstructive on the right. Within the mid left uret er there is a 3 mm calculus (series 2 image 48) in an area previously free of calculus in April of this year. Peritoneum and bowel: Stomach, small bowel, and colon loops are generally normal in caliber and wall thickness, but at the right lower quadrant several small bowel loops are mildly prominent above the upper limits of normal in size ranging between 3.2 and 3.6 cm in maximal transverse dimension. No fr ee air. There is a small amount of perihepatic free fluid measuring less than 1 cm in thickness. Nodes and vessels: No retroperitoneal or mesenteric adenopathy. Aorta and inferior vena cava are no rmal in caliber. Miscellaneous: No ventral hernias. PELVIS: Genitourinary: Bladder wall thickness is normal. Miscellaneous: No inguinal hernias or adenopathy. Scattered surgical clips within the pelvis. Ther e is a small amount of free fluid within the deep peritoneal recess adjacent to the rectosigmoid junc tion and no pelvic abscess or evidence of acute diverticulitis is found. Bones: No suspicious bony lesions. No vertebral body compression fractures. IMPRESSION: 1. Mild small bowel dilatation, however oral contrast from earlier today has transited through much of the small bowel. A point of obstruction is not seen. Ileus may explain this appearance. The sma ll bowel measures only 3.6 cm in maximal transverse dimension. No abnormal small bowel wall thickeni ng is found. 2. Bilateral mild to moderate hydronephrosis has been present in this patient, and scattered small n onobstructive right renal collecting system calculi are seen. No calculus is seen within the ureter on the right but there is a 3 mm calculus within the junction of the middle and distal thirds of the left ureter in an area previously normal in April of this year, and this may explain a portion of the current pain syndrome. Hydronephrosis on the left has not significantly increased, however. 3. Scattered surgical clips within the pelvis, no adenopathy is seen, no infection or neoplasm is id entified. Dictated by: Sunny White M.D. on 06/24/2016 at 12:50 Approved by: Sunny White M.D. on 06/24/2016 at 12:59
[2016-06-24 13:13] VITALS: BP 155/82; PULSE 57; RESP 16; O2SAT 96
--- NOTE | 2016-06-24 13:59 | CONS ---
[address] [address] CONSULTATION REPORT PATIENT: LAZARA WALTON : 1940 MR#: [id number] ADMIT: 06/22/2016 JOB ID: [id number] DATE OF SERVICE: 06/24/2016 SURGICAL CONSULTATION: The patient is seen in consultation for Dr. Marleen Ramirez. He has a history of recurrent small bowel obstructions and I was asked to see him for the same. He has a past history of a prostatectomy plus radiation for prostate cancer. But since last fall, he has had five episodes of abdominal pain which starts in the night. The pain progresses. Usually it resolves on its own, but five times he required coming to the emergency department, three times in [place], [place]. He underwent a diagnostic laparoscopy and what sounds like lysis of adhesions in [place]. His most recent episode started about 60 hours ago. He came to the emergency department, was evaluated. It was felt to be okay to be discharged but then returned shortly thereafter because of nausea and vomiting and was admitted. He took some clear liquids yesterday which led to some pain. This morning he tried some full liquids which led again to distention but he did not use the word pain but he used discomfort. He has had no nausea and vomiting while in the hospital. Yesterday and also today he has had lots of flatus and has had a bowel movement. He just completed a CT scan of the abdomen and pelvis with contrast. He has contrast in his small intestine. He does have some fluid filled loops in the right lower quadrant and pelvis that are distended and do not have contrast in them but he has some proximal small bowel loops that are not distended. His colon has gas and stool in it. I see no evidence of an intra-abdominal inflammatory process. His gallbladder may have a stone in it but he reported to me that he had an ultrasound done in [place], [place] this past winter that showed no gallstones. He has no abdominal wall or inguinal hernias. He has no free air. PAST MEDICAL HISTORY: Illnesses: 1. Prostate cancer. 2. Hypertension. 3. Hyperlipidemia. 4. Recurrent small bowel obstruction. MEDICATIONS AT HOME: 1. Zocor. 2. Hydrochlorothiazide. 3. Aspirin. 4. Cholecalciferol. ALLERGIES TO MEDICATIONS: None. HABITS: Tobacco: None. SOCIAL HISTORY: . Spends half the year in [place]. 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 REVIEW OF SYSTEMS: Otherwise negative. PHYSICAL EXAMINATION: Very pleasant, alert, appearing stated age. No acute distress. BMI 26, temperature 36.5, brachial blood pressure 160/81, pulse 74, respiratory rate 16, O2 sat room air 97%. HEENT: No scleral icterus. Neck: No appreciable masses. Lungs: Clear. Cardiac examination: Regular rhythm. Abdomen: Soft, nontender. It does not appear significantly distended to me. Extremities: No edema. Skin: Significant sun exposure. Neurologic examination: Appropriate affect. No obvious cranial nerve deficits. Moves all extremities. Gait normal. LABORATORY RESULTS: White blood cell count 4.8, hematocrit is 45.6, platelet count 148,000. Electrolytes are normal. Creatinine 1.0. CT: Official result is pending. See my discussion. IMPRESSION: Probable partial bowel obstruction. He does have noncontrast filled loops in the right lower quadrant. They are only mildly distended. But as I said above, he has proximal loops that are not distended. I think it is okay for him to have sips of clear liquids for comfort. I will order abdominal x-rays for this evening and for tomorrow morning to see if his contrast continues to march through. He does not need to go to the operating room today. One could consider, at some point, an elective repeat diagnostic laparoscopy and lysis of adhesions, but he does not need to go to the operating room today.
--- NOTE | 2016-06-24 18:52 | DRSVH ---
PROCEDURE: X-RAY ABDOMEN, ONE VIEW ([id number]) INDICATIONS: partial SBO TECHNIQUE: One view of the abdomen acquired. COMPARISON: None. FINDINGS: Surgical changes and devices: Multiple surgical clips over the pelvis. This involves the lateral pe lvic sidewalls. Some form of prior neoplasm presumably was present.. Bowel: Bowel gas pattern is normal. Soft tissues: No suspicious abdominal calcifications. Visualized solid organ contours appear normal in size. Bones: No suspicious bony lesions. IMPRESSION: Oral contrast from earlier abdomen/pelvis CT scan from earlier today has passed into the colon, and there is no plain film evidence of intestinal obstruction or perforation. Multiple surgi don clips again noted over the pelvis. Dictated by: Sunny White M.D. on 06/24/2016 at 18:49 Approved by: Sunny White M.D. on 06/24/2016 at 18:50
--- NOTE | 2016-06-24 19:19 | NUR ---
Pain Patient continues with low abdomen discomfort but declines need for pain meds. Patient without any nausea or vomiting . Pt had CT scan and abdomen xrays done today and surgeon consult.
[2016-06-24 20:40] VITALS: BP 144/84; PULSE 57; RESP 16; O2SAT 97
--- NOTE | 2016-06-24 21:12 | PCM.PNMED ---
Subjective Date of Service Jun 24, 2016 Subjective Patient is seen and examined. He states that after clear liquids last night, and this morning after he tried full liquids his lower abdomen has tightened and he had pain in the left lower quadrant. She denies nausea or vomiting, fevers or chills however. Reviewed his a 2013 colonoscopy with him which showed pandiverticulosis. No malignancy was found. Exam Vital Signs Vital Sign - Last Date Time Temp Pulse Resp B/P Pulse Ox O2 Delivery O2 Flow Rate FiO2 06/24/16 05:20 36.5 74 16 160/81 97 Room Air Intake and Output 06/23/16 06/23/16 06/24/16 Cumulative From/Thru 15:00 23:00 07:00 06/22/16 11:54 - 06/24/16 06:16 Intake Total 1930 ml 1320 ml 5674 ml Output Total 1800 ml 1000 ml 3370 ml Balance 130 ml 320 ml 2304 ml Intake Oral 1040 ml 600 ml 1640 ml IV Total 890 ml 720 ml 4034 ml Output Urine Total 1800 ml 1000 ml 3370 ml # Bowel Movements 0 1 1 Exam General: NAD, laying in bed, later was seen ambulating HEENT: NCAT Eyes: [place] conjunctivae. No ptosis Neck: No masses, trachea midline, no thyromegaly, negative for JVD Lungs: CTA with normal respiratory effort, no crackles or wheezes CV: RRR, no murmurs/rubs/gallops, normal PMI MSK: Normal gait and station, no digital cyanosis Skin: Warm and dry. No rash, lesions or ulcers Psych: A&O X3, with appropriate affect Abdomen mildly distended compared to other side especially on the right side, resonant to percussion, bowel sounds in the right upper and left lower quadrant , nontender to palpation IVs and Medications IV Fluids D5 half-normal with 20 mEq of potassium running at 100 mL/h Medications Reviewed: Medications were reviewed in detail Lab and Diagnostics Result Diagram: 06/24/1654506/24/1646 X-Rays, CTs and MRIs [facility] Diagnostic [place] [address] Patient Name: LAZARA WALTON MR#: [id number] Location: [facility] [place] Ordering Phys: Oc Boyer MD Date of Service: 06/22/16 0650 PROCEDURE: X-RAY ACUTE ABDOMINAL SERIES ([id number]) INDICATIONS: Abdominal pain TECHNIQUE: One view chest and two views of the abdomen were acquired. COMPARISON: Outside Film, CT, CT ABD PELVIS W CON, 04/05/2016, 3:43. Outside Film, CR, XR ABD ACUTE SERIES 3VW, 04/04/2016, 22:38. FINDINGS: Surgical changes and devices: Multiple surgical clips are demonstrated in the pelvis. Chest: Lungs are clear. Heart size is normal. No pleural effusions. No pneumoperitoneum. Abdomen: Bowel gas pattern demonstrates gas within small and large bowel loops. There is slight distention of small bowel loop in the left lower quadrant measuring up to 3.7 cm. There are scattered small bowel air-fluid levels. No suspicious calcifications. Bones: No suspicious bony lesions. IMPRESSION: 1. Nonspecific bowel gas pattern with scattered small bowel air-fluid levels and mild dilatation in the left lower quadrant but with gas and stool demonstrated in the colon. Differential considerations include an early or partial obstruction, gastroenteritis, or an ileus. Dictated by: Hector Mcgee M.D. on 06/22/2016 at 8:36 Approved by: Hector Mcgee M.D. on 06/22/2016 at 8:41 [facility] Diagnostic Imaging Department [place], [place] [id number] PATIENT NAME: LAZARA WALTON MR#: [id number] LOCATION: [facility] ORDERING PHYS: Chance Day MD DATE OF SERVICE: 11/07/15 0814 PROCEDURE: CT ABDOMEN AND PELVIS WITH CONTRAST ([id number]) INDICATIONS: known SBO recurrent sx TECHNIQUE: After the administration of oral and intravenous contrast, 5 mm thick sections acquired from the diaphragms to the symphysis. 5 mm thick coronal and sagittal reformats were performed. For radiation dose reduction, the following was used : automated exposure control, adjustment of mA and/or kV according to patient size. COMPARISON: Outside Film, CT, ABD/PELVIS W&WO CON (PNL), 05/08/2014, 19:40. [facility], CT, CT ABD PELVIS W CON, 11/04/2015, 2:37. FINDINGS: Image quality: Excellent. ABDOMEN: Lung bases: There are small bilateral low density pleural effusions and mild basilar compressive atelectasis which is new when compared with the study dated 11/04/15. Solid organs: Liver and spleen are normal in size and enhancement. 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 There is new low density perihepatic free fluid and increased perisplenic free fluid when compared with the prior study dated 11/04/15. Gallbladder is unremarkable. Biliary system is non-dilated. Pancreas enhances normally. No adrenal nodules. Kidneys are normal in size and enhancement, without hydronephrosis. There are multiple bilateral pararenal cysts. There are nonobstructive bilateral ureteral calculi. No ureterolithiasis or hydroureter. Peritoneum and bowel: The stomach is partially decompressed and partially contrast filled. The proximal small bowel is decompressed and is filled with oral contrast. The midportion of the small bowel is moderately dilated, similar in extent to the study dated 11/04/15. The proximal half of the dilated small bowel is now filled with contrast. The distal half of the dilated small bowel is filled with non-opacified fluid and solid appearing stool. The terminal ileum is decompressed, as before. There is a smooth proximal transition between decompressed and dilated bowel. A focal transition point at the distal dilated small bowel is in the right upper quadrant (series 3, image 30). Overall, the extent of mid small bowel dilatation is Maddi decrease in extent when compared with the study dated 11/04/15. The colon demonstrates normal caliber and wall thickness and is partially stool and gas filled. There are scattered colonic diverticula. No pericolonic fat stranding or free fluid to suggest acute diverticulitis. The appendix is thin walled and gas filled. No pneumatosis or pneumoperitoneum. There is a moderate amount of low-density free pelvic fluid. Nodes and vessels: No retroperitoneal or mesenteric adenopathy. Aorta and inferior vena cava are normal in caliber. Miscellaneous: There is a small fat-containing ventral hernia. PELVIS: Genitourinary: Bladder wall thickness is normal. Miscellaneous: No inguinal adenopathy. There are small bilateral fat- containing inguinal hernias. Multiple surgical clips are present throughout the pelvis. Nuchal bilateral small low density pleural effusions and compressive atelectasis. Bones: No suspicious bony lesions. Severe degenerative changes are present within the lower lumbar spine. No vertebral body compression fractures. IMPRESSION: 1. Persistent, but slightly decreased dilatation of the midportion of the small bowel when compared with the study dated 11/04/15. Oral contrast is now present within the proximal half of the dilated small bowel. The distal half of the dilated small bowel is filled with fluid and solid appearing stool suggesting delayed transit. A discrete transition point is present within the right upper quadrant and the terminal ileum is decompressed. 2. Increased free abdominal pelvic fluid when compared with the prior study likely associated with small bowel obstruction. No pneumatosis or pneumoperitoneum. 3. Normal appendix. Mild colonic diverticulosis. Dictated by: Kizzy Miguel M.D. on 11/07/2015 at 11:44 Approved by: Kizzy Miguel M.D. on 11/07/2015 at 11:44 Assessment & Plan Assessment #1 abdominal pain likely secondary to partial small bowel obstruction as evidenced by the chest x-ray and clinical presentation and previous history, present on admission -- Requested records from his previous exploratory lap surgery from [facility] -- Clear liquids, plans to advance diet to full liquids later today -- Zofran for nausea -- Pain control with ketorolac IV, morphine 2 mg every 3 when necessary -- IV fluids as above -- We will consider surgical consult if patient does not improve. As the weekend is nearing, if he does improve will consider outpatient follow-up for him to general surgery Dr. Angel Choi is consulted, we appreciate his recommendations. He plans no surgery at this point. -- Reviewed his records from 2008 cystoscopy,, reviewed records from his December [address] abd/pelvic W contrast. Consider nephrolithiasis as a source of his pain. Assessment #2 hypertension, chronic -- Discontinue IV when necessary medications -- Hydrochlorothiazide by mouth home medication daily. We will consider additional medication if he continues to be high Assessment #3 hyperlipidemia, chronic: --Plan to restart homestead in tomorrow a.m. if he is tolerating diet Date of prophylaxis: Enoxaparin 40 mg subcutaneous daily Disposition: To home if patient adequately improves tomorrow Pain Evaluation: Adequate Pain Control GI Prophylaxis: H2 edith VTE Prophylaxis: Sub-Q Enoxaparin Marleen Ramirez DO Jun 24, 2016 10:40
--- NOTE | 2016-06-24 22:33 | NUR ---
GI/Gu; no request for pain rx. No c/o nausea. Urine strained, no stones noted.
[2016-06-25 05:30] VITALS: BP 129/76; PULSE 63; RESP 16; O2SAT 96
[2016-06-25] MEDS: D5 0.45% NaCl + KCl 20 mEq/L 1,000 ML IV SCH ×2 (06:23→13:35)
[2016-06-25 06:52] LABS: BASOPHILS % (AUTO) 0.5 % (0-3); EOSINOPHILS % (AUTO) 4.5 % (0-5); MONOCYTES % (AUTO) 15.2 % (4-12); Mean Corpuscular Hemoglobin 31.9 pg (27.0-35.0); Mean Corpuscular Volume 95.7 fL (81-100); NEUTROPHILS % (AUTO) 55.4 % (40-74); Platelet Count 163 bil/L (150-400)
[2016-06-25] MEDS ORDERED: 0.9% Sodium Chloride 1,000 ML IV ONE (07:55)
[2016-06-25] MEDS: Heparin 5,000 Unit/mL Inj SUBQ SCH ×3 (08:31→23:54)
--- NOTE | 2016-06-25 13:18 | PROG NOTE ---
[address] [address] PROGRESS NOTE PATIENT: LAZARA WALTON : 1940 MR#: [id number] ADMIT: 06/22/2016 JOB ID: [id number] DATE: 06/25/2016 The patient is seen in followup. Last night's abdominal plain films showed contrast into the colon. He has had bowel movements and is passing gas. Has no abdominal pain, nausea or vomiting. REVIEW OF SYSTEMS: Otherwise negative. PHYSICAL EXAMINATION: Alert, no distress. He walks without any guarding or splinting. Temperature is 36.4, brachial blood pressure 129 systolic, pulse 63, respiratory rate 16, O2 sat room air 96%. Abdomen is flat, soft, nontender. IMPRESSION: Small bowel obstruction, resolved. PLAN: I discussed options with the patient. He does have a history of colon polyps and is likely due for a repeat colonoscopy. It also would be reasonable to do an endoscopy at the same time because of the possibility that there is a gastric or duodenal source for his pain. My office will contact him and schedule him for an upper endoscopy and colonoscopy. I have advanced him to full liquids and he could be discharged today if he tolerates those. He is comfortable with this plan.
[2016-06-25 13:53] VITALS: BP 151/78; PULSE 59; RESP 17; O2SAT 96
[2016-06-25] MEDS: 0.9% Sodium Chloride 1,000 ML IV SCH ×2 (15:00→23:55)
--- NOTE | 2016-06-25 15:06 | PCM.PNMED ---
Subjective Date of Service Jun 25, 2016 Subjective Patient is seen and examined. He appears very comfortable. Denies left-sided flank pain or problems with urination. Denies hematuria. This pain is well under control now. Exam Vital Signs Vital Sign - Last Date Time Temp Pulse Resp B/P Pulse Ox O2 Delivery O2 Flow Rate FiO2 06/24/16 20:40 36.7 57 16 144/84 97 Room Air Intake and Output 06/24/16 06/24/16 06/25/16 Cumulative From/Thru 15:00 23:00 07:00 06/22/16 11:54 - 06/25/16 04:54 Intake Total 1579 ml 977 ml 8230 ml Output Total 900 ml 4270 ml Balance 679 ml 977 ml 3960 ml Intake Oral 520 ml 2160 ml IV Total 1059 ml 977 ml 6070 ml Output Urine Total 900 ml 4270 ml # Bowel Movements 1 Exam Gen.: No acute distress HEENT: Normocephalic, atraumatic heart: Regular rate and rhythm no S3-S4 sounds lungs clear to auscultation bilaterally no crackles or wheezes Psych negative for anxiety Abdomen nondistended, nontender negative for flank pain on the left side Extremities negative for edema Neurological: No focal deficits IVs and Medications Medications Reviewed: Medications were reviewed in detail Lab and Diagnostics Laboratory Tests Test 06/25/16 06:15 White Blood Count 3.8th/mm3 (3.8-10.1) Red Blood Count 4.61mil/mm3 (4.40-5.80) Hemoglobin 14.7g/dL (13.8-17.2) Hematocrit 44.1% (41.0-50.0) Mean Corpuscular Volume 95.7fL (81-100) Mean Corpuscular Hemoglobin 31.9pg (27.0-35.0) Mean Corpuscular Hemoglobin Concent 33.3% (32.0-37.0) Red Cell Distribution Width 13.6% (12.3-15.4) Platelet Count 163bil/L (150-400) Neutrophils (%) (Auto) 55.4% (40-74) Lymphocytes (%) (Auto) 24.1% (14-46) Monocytes (%) (Auto) 15.2% (4-12) Eosinophils (%) (Auto) 4.5% (0-5) Basophils (%) (Auto) 0.5% (0-3) Sodium Level 140mEq/L (134-144) Potassium Level 4.1mEq/L (3.5-5.2) Chloride Level 106mEq/L (97-108) Carbon Dioxide Level 24mmol/L (18-29) Blood Urea Nitrogen 8mg/dL (8-27) Creatinine 0.95mg/dL (0.76-1.27) Estimat Glomerular Filtration Rate 82mL/min (>59) Glucose Level 114mg/dL (60-99) Calcium Level 8.9mg/dL (8.5-10.1) Total Bilirubin 0.8mg/dL (0.0-1.2) Aspartate Amino Transf (AST/SGOT) 15U/L (0-50) Alanine Aminotransferase (ALT/SGPT) 11U/L (0-44) Alkaline Phosphatase 33U/L (25-160) Total Protein 5.8g/dL (6.4-8.4) Albumin 3.6g/dL (3.4-5.0) Laboratory Tests Test 06/25/16 06:15 White Blood Count 3.8th/mm3 (3.8-10.1) Red Blood Count 4.61mil/mm3 (4.40-5.80) Hemoglobin 14.7g/dL (13.8-17.2) Hematocrit 44.1% (41.0-50.0) Mean Corpuscular Volume 95.7fL (81-100) Mean Corpuscular Hemoglobin 31.9pg (27.0-35.0) Mean Corpuscular Hemoglobin Concent 33.3% (32.0-37.0) Red Cell Distribution Width 13.6% (12.3-15.4) Platelet Count 163bil/L (150-400) Neutrophils (%) (Auto) 55.4% (40-74) Lymphocytes (%) (Auto) 24.1% (14-46) Monocytes (%) (Auto) 15.2% (4-12) Eosinophils (%) (Auto) 4.5% (0-5) Basophils (%) (Auto) 0.5% (0-3) Sodium Level 140mEq/L (134-144) Potassium Level 4.1mEq/L (3.5-5.2) Chloride Level 106mEq/L (97-108) Carbon Dioxide Level 24mmol/L (18-29) Blood Urea Nitrogen 8mg/dL (8-27) Creatinine 0.95mg/dL (0.76-1.27) Estimat Glomerular Filtration Rate 82mL/min (>59) Glucose Level 114mg/dL (60-99) Calcium Level 8.9mg/dL (8.5-10.1) Total Bilirubin 0.8mg/dL (0.0-1.2) Aspartate Amino Transf (AST/SGOT) 15U/L (0-50) Alanine Aminotransferase (ALT/SGPT) 11U/L (0-44) Alkaline Phosphatase 33U/L (25-160) Total Protein 5.8g/dL (6.4-8.4) Albumin 3.6g/dL (3.4-5.0) Result Diagram: 06/24/1646 06/24/16 0546 X-Rays, CTs and MRIs [facility] Diagnostic Imaging Department [place], [place] [id number] Patient Name: LAZARA WALTON MR#: [id number] Location: [facility] [place] Ordering Phys: Oc Boyer MD Date of Service: 06/22/16 0650 PROCEDURE: X-RAY ACUTE ABDOMINAL SERIES ([id number]) INDICATIONS: Abdominal pain TECHNIQUE: One view chest and two views of the abdomen were acquired. COMPARISON: Outside Film, CT, CT ABD PELVIS W CON, 04/05/2016, 3:43. Outside Film, CR, XR ABD ACUTE SERIES 3VW, 04/04/2016, 22:38. FINDINGS: Surgical changes and devices: Multiple surgical clips are demonstrated in the pelvis. Chest: Lungs are clear. Heart size is normal. No pleural effusions. No pneumoperitoneum. Abdomen: Bowel gas pattern demonstrates gas within small and large bowel loops. There is slight distention of small bowel loop in the left lower quadrant measuring up to 3.7 cm. There are scattered small bowel air-fluid levels. No suspicious calcifications. Bones: No suspicious bony lesions. IMPRESSION: 1. Nonspecific bowel gas pattern with scattered small bowel air-fluid levels and mild dilatation in the left lower quadrant but with gas and stool demonstrated in the colon. Differential considerations include an early or partial obstruction, gastroenteritis, or an ileus. Dictated by: Hector Mcgee M.D. on 06/22/2016 at 8:36 Approved by: Hector Mcgee M.D. on 06/22/2016 at 8:41 [facility] Diagnostic Imaging Department [place] [address] PATIENT NAME: LAZARA WALTON MR#: [id number] [place] [facility] [place]YS: Chance Day MD DATE OF SERVICE: 11/07/15 0814 PROCEDURE: CT ABDOMEN AND PELVIS WITH CONTRAST ([id number]) INDICATIONS: known SBO recurrent sx TECHNIQUE: After the administration of oral and intravenous contrast, 5 mm thick sections acquired from the diaphragms to the symphysis. 5 mm thick coronal and sagittal reformats were performed. For radiation dose reduction, the following was used : automated exposure control, adjustment of mA and/or kV according to patient size. COMPARISON: Outside Film, CT, ABD/PELVIS W&WO CON (PN), 05/08/2014, 19:40. [facility], CT, CT ABD PELVIS W CON, 11/04/2015, 2:37. FINDINGS: Image quality: Excellent. ABDOMEN: Lung bases: There are small bilateral low density pleural effusions and mild basilar compressive atelectasis which is new when compared with the study dated 11/04/15. Solid organs: Liver and spleen are normal in size and enhancement. 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 There is new low density perihepatic free fluid and increased perisplenic free fluid when compared with the prior study dated 11/04/15. Gallbladder is unremarkable. Biliary system is non-dilated. Pancreas enhances normally. No adrenal nodules. Kidneys are normal in size and enhancement, without hydronephrosis. There are multiple bilateral pararenal cysts. There are nonobstructive bilateral ureteral calculi. No ureterolithiasis or hydroureter. Peritoneum and bowel: The stomach is partially decompressed and partially contrast filled. The proximal small bowel is decompressed and is filled with oral contrast. The midportion of the small bowel is moderately dilated, similar in extent to the study dated 11/04/15. The proximal half of the dilated small bowel is now filled with contrast. The distal half of the dilated small bowel is filled with non-opacified fluid and solid appearing stool. The terminal ileum is decompressed, as before. There is a smooth proximal transition between decompressed and dilated bowel. A focal transition point at the distal dilated small bowel is in the right upper quadrant (series 3, image 30). Overall, the extent of mid small bowel dilatation is Maddi decrease in extent when compared with the study dated 11/04/15. The colon demonstrates normal caliber and wall thickness and is partially stool and gas filled. There are scattered colonic diverticula. No pericolonic fat stranding or free fluid to suggest acute diverticulitis. The appendix is thin walled and gas filled. No pneumatosis or pneumoperitoneum. There is a moderate amount of low-density free pelvic fluid. Nodes and vessels: No retroperitoneal or mesenteric adenopathy. Aorta and inferior vena cava are normal in caliber. Miscellaneous: There is a small fat-containing ventral hernia. PELVIS: Genitourinary: Bladder wall thickness is normal. Miscellaneous: No inguinal adenopathy. There are small bilateral fat- containing inguinal hernias. Multiple surgical clips are present throughout the pelvis. Nuchal bilateral small low density pleural effusions and compressive atelectasis. Bones: No suspicious bony lesions. Severe degenerative changes are present within the lower lumbar spine. No vertebral body compression fractures. IMPRESSION: 1. Persistent, but slightly decreased dilatation of the midportion of the small bowel when compared with the study dated 11/04/15. Oral contrast is now present within the proximal half of the dilated small bowel. The distal half of the dilated small bowel is filled with fluid and solid appearing stool suggesting delayed transit. A discrete transition point is present within the right upper quadrant and the terminal ileum is decompressed. 2. Increased free abdominal pelvic fluid when compared with the prior study likely associated with small bowel obstruction. No pneumatosis or pneumoperitoneum. 3. Normal appendix. Mild colonic diverticulosis. Dictated by: Kizzy Miguel M.D. on 11/07/2015 at 11:44 Approved by: Kizzy Miguel M.D. on 11/07/2015 at 11:44 Assessment & Plan Assessment #1 abdominal pain likely secondary to partial small bowel obstruction as evidenced by the chest x-ray and clinical presentation and previous history, present on admission -- Requested records from his previous exploratory lap surgery from [facility], reviewed the records. Shows that he had a adhesion lysis in December 2015. Also had a cystoscopy in 2008. -- Diet is advanced to cardiac diet tonight -- Zofran for nausea -- Pain control with ibuprofen and Tylenol -- We will consider surgical consult if patient does not improve. Gen. Surgery Dr. Angel Choi is consulted, we appreciate his recommendations. He plans no surgery at this point. He signed off today. Would like to set up a colonoscopy and EGD appointment for the patient as outpatient. His office will call the patient decided that the appointment. -- CT abd/pelvic W contrast was ordered yesterday. Showed ileus but a f/u abd x -ray did show CT contrast clearing through the bowel Nephrolithiasis, acute: Left-sided ureteral stone 3 mm in size plus mild-to- moderate b/l hydronephrosis, Ureteral lithiasis on the left ureter as evidenced by the CT. -- Strain all urine, accurate I&O's -- Continue normal saline 100 mL/h to hydrate him better -- tamsulosin daily 0.4 mg -- Discussed case with urology on-call Dr. Rae turner, she agrees that patient can follow-up with urology outpatient. Patient states he has a follow-up appointment that he missed because of this hospitalization, because he is due to see his urologist anyways for his six-month follow-up for his prostate cancer status (post prostatectomy)., -- Staff have been straining his urine but has not found any stones -- He has no symptoms today from this Assessment #2 hypertension, chronic -- Hydrochlorothiazide is increased to 25 mg due to elevated blood pressure during this admission Assessment #3 hyperlipidemia, chronic: -- Restarted his statin Date of prophylaxis: Enoxaparin 40 mg subcutaneous daily Disposition: To home if patient adequately improves tomorrow Pain Evaluation: Adequate Pain Control GI Prophylaxis: H2 edith VTE Prophylaxis: Sub-Q Enoxaparin Marleen Ramirez DO Jun 25, 2016 05:43
--- NOTE | 2016-06-25 17:41 | NUR ---
GI/ Urine strained; no stones noted. Denies abd pain, nausea. Advanced to general diet. Tolerates chicken, mashed potatoes and bread.
[2016-06-25 20:20] VITALS: BP 144/80; PULSE 69; RESP 18; O2SAT 97
[2016-06-25] MEDS ORDERED: HYDR25TA4 PO (21:56)
[2016-06-25] MEDS ORDERED: TAMS0.4C98 PO (21:56)
--- NOTE | 2016-06-25 22:40 | NUR ---
/GI; urine strained, without stones noted. No c/o nausea or vomiting. No request for pain rx. States is hoping to be discharged tomorrow if all goes well with his eating.
[2016-06-26 05:00] VITALS: BP 143/78; PULSE 66; RESP 16; O2SAT 97
--- NOTE | 2016-06-26 05:22 | NUR ---
PSYCH; slept well during the night without c/o.
[2016-06-26] MEDS ORDERED: HYDR25TA4 PO (07:41)
[2016-06-26] MEDS ORDERED: TAMS0.4C98 PO (07:41)
--- NOTE | 2016-06-26 07:44 | PCM.DIMED ---
Discharge Instructions Date of Service Jun 26, 2016 Dates of Hospitalization Jun 22, 2016 at 13:37 Diet Heart Healthy Activity No restrictions Call your provider Fever or Chills, Shortness of breath, Bleeding, Chest pain, Vomitting, Excessive diarrhea, Weakness (unilateral), Other Patient Instructions Follow-up plan F/U BMP X1 prior to f/u with PCP F/U with PCP in 2-3 weeks F/U with Dr. Angel Choi in the next few weeks ( his office will call you to set up Colonocopy and EGD appointments) F/U with your Urologist as previously planned Marleen Ramirez DO Jun 26, 2016 07:44
--- NOTE | 2016-06-26 07:55 | PCM.DC.MED ---
Discharge Summary Date of Service Jun 26, 2016 Dates of Hospitalization Date of Hospital Admission Jun 22, 2016 at 13:37 Date of Discharge: Jun 26, 2016 Providers: Admitting Physician: Jared Hart MD Primary Care Physician: Rahul Cazares MD Attending Physician: Jared Hart MD Diagnosis at Time of Discharge Diagnosis at Time of Discharge Ileus, Partial Small Bowel Obstruction, ureterolithiasis, HTN, prostate cancer s /p prostatectomy Consultations General Surgery Procedures XRay, CTs & MRIs [facility] Diagnostic Imaging Department [place], [place] [id number] Patient Name: LAZARA WALTON MR#: [id number] Location: [facility] [place] Ordering Phys: Oc Boyer MD Date of Service: 06/22/16 0650 PROCEDURE: X-RAY ACUTE ABDOMINAL SERIES ([id number]) INDICATIONS: Abdominal pain TECHNIQUE: One view chest and two views of the abdomen were acquired. COMPARISON: Outside Film, CT, CT ABD PELVIS W CON, 04/05/2016, 3:43. Outside Film, CR, XR ABD ACUTE SERIES 3VW, 04/04/2016, 22:38. FINDINGS: Surgical changes and devices: Multiple surgical clips are demonstrated in the pelvis. Chest: Lungs are clear. Heart size is normal. No pleural effusions. No pneumoperitoneum. Abdomen: Bowel gas pattern demonstrates gas within small and large bowel loops. There is slight distention of small bowel loop in the left lower quadrant measuring up to 3.7 cm. There are scattered small bowel air-fluid levels. No suspicious calcifications. Bones: No suspicious bony lesions. IMPRESSION: 1. Nonspecific bowel gas pattern with scattered small bowel air-fluid levels and mild dilatation in the left lower quadrant but with gas and stool demonstrated in the colon. Differential considerations include an early or partial obstruction, gastroenteritis, or an ileus. Dictated by: Hector Mcgee M.D. on 06/22/2016 at 8:36 Approved by: Hector Mcgee M.D. on 06/22/2016 at 8:41 [facility] Diagnostic Imaging Department [place], [place] [id number] PATIENT NAME: LAZARA WALTON MR#: [id number] LOCATION: [facility] [place] ORDERING PHYS: Chance Day MD DATE OF SERVICE: 11/07/15813 PROCEDURE: CT ABDOMEN AND PELVIS WITH CONTRAST ([id number]) INDICATIONS: known SBO recurrent sx TECHNIQUE: After the administration of oral and intravenous contrast, 5 mm thick sections acquired from the diaphragms to the symphysis. 5 mm thick coronal and sagittal reformats were performed. For radiation dose reduction, the following was used : automated exposure control, adjustment of mA and/or kV according to patient size. COMPARISON: Outside Film, CT, ABD/PELVIS W&WO CON ([facility]), 05/08/2014, 19:40. [facility], CT, CT ABD PELVIS W CON, 11/04/2015, 2:37. FINDINGS: Image quality: Excellent. ABDOMEN: Lung bases: There are small bilateral low density pleural effusions and mild basilar compressive atelectasis which is new when compared with the study dated 11/04/15. Solid organs: Liver and spleen are normal in size and enhancement. 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 There is new low density perihepatic free fluid and increased perisplenic free fluid when compared with the prior study dated 11/04/15. Gallbladder is unremarkable. Biliary system is non-dilated. Pancreas enhances normally. No adrenal nodules. Kidneys are normal in size and enhancement, without hydronephrosis. There are multiple bilateral pararenal cysts. There are nonobstructive bilateral ureteral calculi. No ureterolithiasis or hydroureter. Peritoneum and bowel: The stomach is partially decompressed and partially contrast filled. The proximal small bowel is decompressed and is filled with oral contrast. The midportion of the small bowel is moderately dilated, similar in extent to the study dated 11/04/15. The proximal half of the dilated small bowel is now filled with contrast. The distal half of the dilated small bowel is filled with non-opacified fluid and solid appearing stool. The terminal ileum is decompressed, as before. There is a smooth proximal transition between decompressed and dilated bowel. A focal transition point at the distal dilated small bowel is in the right upper quadrant (series 3, image 30). Overall, the extent of mid small bowel dilatation is Maddi decrease in extent when compared with the study dated 11/04/15. The colon demonstrates normal caliber and wall thickness and is partially stool and gas filled. There are scattered colonic diverticula. No pericolonic fat stranding or free fluid to suggest acute diverticulitis. The appendix is thin walled and gas filled. No pneumatosis or pneumoperitoneum. There is a moderate amount of low-density free pelvic fluid. Nodes and vessels: No retroperitoneal or mesenteric adenopathy. Aorta and inferior vena cava are normal in caliber. Miscellaneous: There is a small fat-containing ventral hernia. PELVIS: Genitourinary: Bladder wall thickness is normal. Miscellaneous: No inguinal adenopathy. There are small bilateral fat- containing inguinal hernias. Multiple surgical clips are present throughout the pelvis. Nuchal bilateral small low density pleural effusions and compressive atelectasis. Bones: No suspicious bony lesions. Severe degenerative changes are present within the lower lumbar spine. No vertebral body compression fractures. IMPRESSION: 1. Persistent, but slightly decreased dilatation of the midportion of the small bowel when compared with the study dated 11/04/15. Oral contrast is now present within the proximal half of the dilated small bowel. The distal half of the dilated small bowel is filled with fluid and solid appearing stool suggesting delayed transit. A discrete transition point is present within the right upper quadrant and the terminal ileum is decompressed. 2. Increased free abdominal pelvic fluid when compared with the prior study likely associated with small bowel obstruction. No pneumatosis or pneumoperitoneum. 3. Normal appendix. Mild colonic diverticulosis. Dictated by: Kizzy Miguel M.D. on 11/07/2015 at 11:44 Approved by: Kizzy Miguel M.D. on 11/07/2015 at 11:44 Brief History Chief Complaint: Recurrent abdominal pain with vomiting HISTORY was OBTAINED FROM PATIENT / [employer] NOTES History of present illness: 76-year-old male with 3 year hx of SBO started after prostatectomy operation, now w/ recurrent epigastric abdominal pain with vomiting without blood, extensive workup including laparoscopy in [place] months ago, presented to the emergency department this morning was discharged but symptoms returned so patient returned to the ER this afternoon. NO EGD hx. never GERD/never indigestion hx. no chnage in diet/ no spoiled food ingestion. feels bloated, starts improving w/ bloating improves, never burping hx, flatus currently present. prior SBOs last 3-5+ days. In the ER vital signs stable, Dilaudid, Zofran, Ativan, saline Last hospitalized November 052015 for recurrent partial SBO seen by general surgery likely due to right upper quadrant adhesions treated with decompression NG tube and conservative management - Dr Brar, upper GI bleeding due to gastritis, Review of Systems - none of the following - F/C/sick contact / wt change/ DUTTA / lightheaded / dizziness / sob / cough / cp / diarrhea / bleeding/bruising / leg swelling / change in voiding / yeast infections / rash Ambulates by self FAMILY HX: No past family medical history of SBO or Colon cancer SOCIAL HX: 2-3 beers per day, former smoker MEDICATIONS: 1. Zocor 20 mg p.o. at bedtime. 2. Hydrochlorothiazide 12.5 mg p.o. daily. 3. Aspirin 81 mg p.o. daily. 4. Cholecalciferol 5000 units p.o. daily. no PPI, dcd by PCP PAST MEDICAL/SURGICAL HISTORY: Hypertension Hyperlipidemia Small bowel obstruction, recurrent Prostate CA s/p resection Surgical History Prostatectomy Exam on admission: on RA NAD A and O x 3 mood affect WNL NC/AT / No icterus / No injected eyes / EOMI PERRL / No pharyngeal lesions/ No oral lesions / hearing intact // dry mouth Supple neck CTAB equal chest rise / no accessory muscle use / speaks in full sentences / no RRW RRR S1 S2 / no MRG / 2+ radial pulses Soft mild tenderness epigastric, distended hypoactive BS no hepatosplenomegaly Lower extremities - No edema No cyanosis No ecchymosis No rash / No jaundice MEADOWS Symmetrical facies STUDIES: Trop normal UA negative leukocyte Estrace negative nitrite negative yeast Left shift Erythrocytosis LFT normal, lipase 44, Cr 1.03 IMAGING: PROCEDURE: X-RAY ACUTE ABDOMINAL SERIES ([id number]) INDICATIONS: Abdominal pain TECHNIQUE: One view chest and two views of the abdomen were acquired. COMPARISON: Outside Film, CT, CT ABD PELVIS W CON, 04/05/2016, 3:43. Outside Film, CR, XR ABD ACUTE SERIES 3VW, 04/04/2016, 22:38. FINDINGS: Surgical changes and devices: Multiple surgical clips are demonstrated in the pelvis. Chest: Lungs are clear. Heart size is normal. No pleural effusions. No pneumoperitoneum. Abdomen: Bowel gas pattern demonstrates gas within small and large bowel loops. There is slight distention of small bowel loop in the left lower quadrant measuring up to 3.7 cm. There are scattered small bowel air-fluid levels. No suspicious calcifications. Bones: No suspicious bony lesions. IMPRESSION: 1. Nonspecific bowel gas pattern with scattered small bowel air-fluid levels and mild dilatation in the left lower quadrant but with gas and stool demonstrated in the colon. Differential considerations include an early or partial obstruction, gastroenteritis, or an ileus. DATE OF SERVICE: 11/07/15 0814 PROCEDURE: CT ABDOMEN AND PELVIS WITH CONTRAST ([id number]) INDICATIONS: known SBO recurrent sx TECHNIQUE: After the administration of oral and intravenous contrast, 5 mm thick sections acquired from the diaphragms to the symphysis. 5 mm thick coronal and sagittal reformats were performed. For radiation dose reduction, the following was used : automated exposure control, adjustment of mA and/or kV according to patient size. COMPARISON: Outside Film, CT, ABD/PELVIS W&WO CON ([facility]), 05/08/2014, 19:40. [facility], CT, CT ABD PELVIS W CON, 11/04/2015, 2:37. FINDINGS: Image quality: Excellent. ABDOMEN: Lung bases: There are small bilateral low density pleural effusions and mild basilar compressive atelectasis which is new when compared with the study dated 11/04/15. Solid organs: Liver and spleen are normal in size and enhancement. 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 There is new low density perihepatic free fluid and increased perisplenic free fluid when compared with the prior study dated 11/04/15. Gallbladder is unremarkable. Biliary system is non-dilated. Pancreas enhances normally. No adrenal nodules. Kidneys are normal in size and enhancement, without hydronephrosis. There are multiple bilateral pararenal cysts. There are nonobstructive bilateral ureteral calculi. No ureterolithiasis or hydroureter. Peritoneum and bowel: The stomach is partially decompressed and partially contrast filled. The proximal small bowel is decompressed and is filled with oral contrast. The midportion of the small bowel is moderately dilated, similar in extent to the study dated 11/04/15. The proximal half of the dilated small bowel is now filled with contrast. The distal half of the dilated small bowel is filled with non-opacified fluid and solid appearing stool. The terminal ileum is decompressed, as before. There is a smooth proximal transition between decompressed and dilated bowel. A focal transition point at the distal dilated small bowel is in the right upper quadrant (series 3, image 30). Overall, the extent of mid small bowel dilatation is Maddi decrease in extent when compared with the study dated 11/04/15. The colon demonstrates normal caliber and wall thickness and is partially stool and gas filled. There are scattered colonic diverticula. No pericolonic fat stranding or free fluid to suggest acute diverticulitis. The appendix is thin walled and gas filled. No pneumatosis or pneumoperitoneum. There is a moderate amount of low-density free pelvic fluid. Nodes and vessels: No retroperitoneal or mesenteric adenopathy. Aorta and inferior vena cava are normal in caliber. Miscellaneous: There is a small fat-containing ventral hernia. PELVIS: Genitourinary: Bladder wall thickness is normal. Miscellaneous: No inguinal adenopathy. There are small bilateral fat- containing inguinal hernias. Multiple surgical clips are present throughout the pelvis. Nuchal bilateral small low density pleural effusions and compressive atelectasis. Bones: No suspicious bony lesions. Severe degenerative changes are present within the lower lumbar spine. No vertebral body compression fractures. IMPRESSION: 1. Persistent, but slightly decreased dilatation of the midportion of the small bowel when compared with the study dated 11/04/15. Oral contrast is now present within the proximal half of the dilated small bowel. The distal half of the dilated small bowel is filled with fluid and solid appearing stool suggesting delayed transit. A discrete transition point is present within the right upper quadrant and the terminal ileum is decompressed. 2. Increased free abdominal pelvic fluid when compared with the prior study likely associated with small bowel obstruction. No pneumatosis or pneumoperitoneum. 3. Normal appendix. Mild colonic diverticulosis. Active issues and reason for admission Recurrent SBO, unable to keep in oral intake, anticipate 3-5 days prior to recovery as gradual abdominal distention improves --D51/2 NS --simethicone --famotidine IV --hold NG for now Chronic issues known prior to admission, present on admission HTN DLP --home statin/hctz metoprolol/hydralazine prn Diet NPO DVT prophylaxis lovenox scd ambulate Code full Disposition inpt Assessment and plan were discussed with patient family. Hospital Course Assessment #1 abdominal pain likely secondary to partial small bowel obstruction as evidenced by the chest x-ray and clinical presentation and previous history, present on admission -- Requested records from his previous exploratory lap surgery from [facility], reviewed the records. Shows that he had a adhesion lysis in December 2015. Also had a cystoscopy in 2008. -- Diet is advanced to cardiac diet tonight -- Zofran for nausea -- Pain control with ibuprofen and Tylenol -- We will consider surgical consult if patient does not improve. Gen. Surgery Dr. Angel Choi is consulted, we appreciate his recommendations. He plans no surgery at this point. He signed off today. Would like to set up a colonoscopy and EGD appointment for the patient as outpatient. His office will call the patient decided that the appointment. -- CT abd/pelvic W contrast was ordered yesterday. Showed ileus but a f/u abd x -ray did show CT contrast clearing through the bowel -- Patient is tolerating normal diet. Completely symptom-free, is ambulating in the pelvis Nephrolithiasis, acute: Left-sided ureteral stone 3 mm in size plus mild-to- moderate b/l hydronephrosis, Ureteral lithiasis on the left ureter as evidenced by the CT. -- Strain all urine, accurate I&O's -- Continue normal saline 100 mL/h to hydrate him better -- tamsulosin daily 0.4 mg -- Discussed case with urology on-call Dr. Rae turner, she agrees that patient can follow-up with urology outpatient. Patient states he has a follow-up appointment that he missed because of this hospitalization, because he is due to see his urologist anyways for his six-month follow-up for his prostate cancer status (post prostatectomy)., -- Staff have been straining his urine but has not found any stones -- He has no symptoms today from this Assessment #2 hypertension, chronic -- Hydrochlorothiazide is increased to 25 mg due to elevated blood pressure during this admission. Follow up BMP. To follow-up with PCP in the next few weeks is given Assessment #3 hyperlipidemia, chronic: -- Restarted his statin Date of prophylaxis: Enoxaparin 40 mg subcutaneous daily Disposition: To home if patient adequately improves tomorrow Exam Vital Signs (Last) Date Time Temp Pulse Resp B/P Pulse Ox O2 Delivery O2 Flow Rate FiO2 06/26/16 05:00 36.4 66 16 143/78 97 Room Air Exam Physical exam: Gen.: No acute distress HEENT normocephalic atraumatic Heart regular rate and rhythm no S3-S4 murmurs Lungs clear to auscultation bilaterally no crackles or wheezes Abdomen soft, nontender, nondistended, normal bowel sounds Extremities without edema Psych negative for any anxiety Neurological: No focal deficits Test 06/22/16 05:20 06/22/16 19:38 06/25/16 06:15 Phosphorus Level 2.8mg/dL (2.5-4.9) Urine Color Yellow (YELLOW) Urine Appearance Clear (CLEAR,HAZY) Urine pH 5.5 (5.0-8.0) Urine Specific Drayden 1.025 (1.003-1.035) Urine Protein Negativemg/dL (NEG,TRACE) Urine Glucose (UA) Negativemg/dL (NEGATIVE) Urine Ketones Tracemg/dL (NEGATIVE) Urine Occult Blood Large (NEGATIVE) Urine Nitrite Negative (NEGATIVE) Urine Bilirubin Negative (NEGATIVE) Urine Urobilinogen Normalmg/dL (NORMAL) Urine Leukocyte Esterase Negative (NEGATIVE) Urine RBC 11-50/hpf (0-2) Urine WBC 0-5/hpf (0-5) Urine Epithelial Cells Occasional/hpf (NONE-MOD) Urine Crystals None seen (NONE SEEN) Urine Bacteria None/hpf (NONE-FEW) Urine Hyaline Casts None/lpf (NONE) Urine Granular Casts None seen (NONE SEEN) Urine Waxy Casts None seen (NONE SEEN) Urine Red Blood Cell Casts None seen (NONE SEEN) Urine White Blood Cell Casts None seen (NONE SEEN) Urine Mucus None seen (None Seen) Urine Trichomonas None seen (NONE SEEN) Urine Yeast None (NONE SEEN) Urinalysis Comment None Urine Culture Reflexed Not indicated White Blood Count 3.8th/mm3 (3.8-10.1) Red Blood Count 4.61mil/mm3 (4.40-5.80) Hemoglobin 14.7g/dL (13.8-17.2) Hematocrit 44.1% (41.0-50.0) Mean Corpuscular Volume 95.7fL (81-100) Mean Corpuscular Hemoglobin 31.9pg (27.0-35.0) Mean Corpuscular Hemoglobin Concent 33.3% (32.0-37.0) Red Cell Distribution Width 13.6% (12.3-15.4) Platelet Count 163bil/L (150-400) Neutrophils (%) (Auto) 55.4% (40-74) Lymphocytes (%) (Auto) 24.1% (14-46) Monocytes (%) (Auto) 15.2% (4-12) Eosinophils (%) (Auto) 4.5% (0-5) Basophils (%) (Auto) 0.5% (0-3) Sodium Level 140mEq/L (134-144) Potassium Level 4.1mEq/L (3.5-5.2) Chloride Level 106mEq/L (97-108) Carbon Dioxide Level 24mmol/L (18-29) Blood Urea Nitrogen 8mg/dL (8-27) Creatinine 0.95mg/dL (0.76-1.27) Estimat Glomerular Filtration Rate 82mL/min (>59) Glucose Level 114mg/dL (60-99) Calcium Level 8.9mg/dL (8.5-10.1) Total Bilirubin 0.8mg/dL (0.0-1.2) Aspartate Amino Transf (AST/SGOT) 15U/L (0-50) Alanine Aminotransferase (ALT/SGPT) 11U/L (0-44) Alkaline Phosphatase 33U/L (25-160) Total Protein 5.8g/dL (6.4-8.4) Albumin 3.6g/dL (3.4-5.0) Discharge Medications Discharge Medications Cholecalciferol (Vitamin D3) (Vitamin D3) 5,000 Unit Capsule 5,000 UNIT PO DAILY (Reported) Hydrochlorothiazide (Hydrochlorothiazide) 25 Mg Tablet 25 MG PO DAILY Prescribed by: ELIZABETH OMER DO Simvastatin (Simvastatin) 20 Mg Tablet 20 MG PO DAILY (Reported) Tamsulosin (Flomax) 0.4 Mg Capsule 0.4 MG PO DAILY Prescribed by: ELIZABETH OMER DO As needed Acetaminophen (Acetaminophen) 500 Mg Tablet 1,000 MG PO DAILY PRN PRN For Fever (Reported) Followup Plan Follow-up plan F/U BMP X1 prior to f/u with PCP F/U with PCP in 2-3 weeks F/U with Dr. Angel Choi in the next few weeks ( his office will call you to set up Colonocopy and EGD appointments) F/U with your Urologist as previously planned Discharge Diet: Heart Healthy Discharge Activity: No restrictions Elizabeth Omer DO Jun 26, 2016 07:55
--- NOTE | 2016-06-26 09:15 | NUR ---
discharged home. Walked(his request) to [facility] after discharged where his hasan appt this am at 0900. Eating/drinking well, denies pain or nausea, voiding. He will have f/u appt with PCP with [facility], Dr Rosi Choi and also urology.
--- NOTE | 2016-06-26 10:07 | NUR ---
Social Work: Discharge Data: Pt is a 76 y/o male on day 4 of hospitalization admitted for abdominal pain per H&P. Pt has been been up and independent in his room. No discharge needs identified. Pt was disharged home today via POV with . Assessment: Pt has no identified discharge needs. Plan: Pt has been discharged home with no anticipated needs. ISAIAH Ramos
[2016-07-19] MEDS ORDERED: ASPI-973 PO (14:15)
== END 2016-06-26 08:22 | disposition home or self-care (01) | DRG 389 ==
LOC: SED 11:49 → OSC 13:37 → OBSVTOIN 13:37
PROVIDERS: ADMIT Urology; ATTEND Urology
DX: K56.5 Intestinal adhesions [bands] with obstruction (postinfection) (principal); N13.2 Hydronephrosis with renal and ureteral calculous obstruction; I10 Essential (primary) hypertension; E78.5 Hyperlipidemia, unspecified; Z87.891 Personal history of nicotine dependence

== ENCOUNTER 2016-07-20 07:10 | Day surgery (SDC) | payer MEDICARE ==
[~2016-07-20] VITALS: Ht 175.3 cm; Wt 79.4 kg
[~2016-07-20 07:10] MED LIST changes: +ACET-171 PO; +ASPI-973 PO; -HYDR-4003 PO; -HYOS0.1218 SL; -OMEP20TA86 PO; -ONDA4TAB9 PO; -SIMV20TA4 PO; +Sodium Chloride LOK Flush 10 mL Syringe IV PRN; +TAMS0.4C98 PO; +fentaNYL-PF 50 mCg/mL 2 mL Inj IVPUSH PRN
[2016-07-20] MEDS: 0.9% Sodium Chloride 1,000 ML IV SCH ×2 (07:28→08:05)
[2016-07-20 07:31] VITALS: BP 128/79; PULSE 69; RESP 16; O2SAT 96
[2016-07-20 08:36] VITALS: BP 109/68; PULSE 65; RESP 16; O2SAT 95
[2016-07-20 08:46] VITALS: BP 119/69; PULSE 62; RESP 16; O2SAT 93
[2016-07-20 08:56] VITALS: BP 126/78; PULSE 72; RESP 16; O2SAT 97
--- NOTE | 2016-07-20 23:09 | ENDO ---
[address] [address] ENDOSCOPY PROCEDURE PATIENT: LAZARA WALTON : 1940 MR#: [id number] ADMIT: 07/20/2016 JOB ID: [id number] DATE OF SERVICE: 07/20/2016 PREOPERATIVE DIAGNOSIS(ES): 1. Abdominal pain. 2. Personal history of colon polyps. POSTOPERATIVE DIAGNOSIS(ES): 1. Possible duodenitis. 2. Ascending colon polyp. 3. Diffuse diverticulosis. PROCEDURE: 1. Upper endoscopy with biopsy. 2. Colonoscopy with cold forceps polypectomy. SURGEON: Angel Choi MD. INDICATIONS: The patient is a 76-year-old man who was recently hospitalized with a clinical diagnosis of a partial small bowel obstruction that resolved spontaneously. He has a personal history of colon polyps. Upon discharge, it was recommended to proceed with an upper endoscopy to rule out an upper gastrointestinal source for his abdominal pain, but also to do a screening colonoscopy. FINDINGS: 1. Esophagus: Normal. His GE junction and esophageal hiatus was at 40 cm from the incisors. Retroflexed views showed no evidence of a hiatal hernia. 2. Fundus: Normal. He has a Hill grade I flap valve. 3. Gastric body: Normal. 4. Gastric antrum: Normal. 5. Pylorus: Normal. 6. Duodenum: Proximal portion of the duodenum may have duodenitis or it may simply have been hypertrophic Trenton's glands; this was biopsied. 7. Rectum: Rectal exam normal. 8. Colon: Ascending colon polyp and diffuse diverticulosis. 9. Retroflex views of the rectum, small hypertrophied anal papilla. PROCEDURE IN DETAIL: The procedure and sedation plan was discussed with the patient and nursing staff, and a procedural time-out was held. He received 5 mg of Versed, 100 mcg of fentanyl and gargled viscous Xylocaine. The Olympus GIF H 190 video endoscope was passed transorally, advanced into the third portion of the duodenum, withdrawn with results as stated above. Biopsies of the 1st portion of the duodenum and of the antrum were obtained. Retroflexed views of the GE junction were obtained. He was repositioned and digital rectal exam was performed and the Olympus PCF H 180 AL video colonoscope was passed transanally, advanced into the cecum with visualization of the ileocecal valve and the appendiceal orifice. The withdrawal time was 7 minutes 43 seconds. The only polyp identified was in the ascending colon and it was in the range of 2 mm. He had mild diffuse diverticulosis seen in the ascending colon and sigmoid colon. Retroflexed views of the cardia revealed a small hypertrophic anal papilla. PLAN: He will return to my office for discussion of his recurrent small bowel obstruction and the results of these studies.
--- NOTE | 2016-07-21 14:54 | PATH ---
SURGICAL PATHOLOGY Attending Physician:Socorro Jones CASE STATUS: Signed Out PATIENT NAME: LAZARA WALTON PID: [id number] : 1940 DATE COLLECTED:07/20/2016 16:36 SPECIMEN: 1: Duodenum, Biopsy 2: Colon, Biopsy CLINICAL HISTORY: 1). DUODENAL BIOPSY 2). ASCENDING COLON POLYP FINAL DIAGNOSIS: 1. Duodenal Biopsy: Duodenal mucosa with no diagnostic abnormality. Negative for active inflammation, features of sprue, dysplasia, or malignancy. 2. Ascending Colon, Polyp, Biopsy: Tubular adenoma; negative for high-grade dysplasia. ICD10: K63.5 GROSS DESCRIPTION: The specimen is received in two formalin filled containers labeled with the patient's name. 1). The specimen is sublabeled "duodenal" and consists of 2 portions of tissue which aggregate to 0.3 x 0.3 x 0.2 CM. The specimen is entirely submitted in cassette 1A. 2). The specimen is sublabeled "ascending colon" and consists of a 0.2 x 0.2 x 0.2 CM portion of tissue which is entirely submitted in cassette 2A. 07/20/2016 [facility] ICD-9 CODES: CPT CODES: 1: 80845 2: 79884 Electronically Signed Out Latoya Blank MD [facility] Pathology [facility] [address], [place] [address] Technical component performed at [facility], [facility] [address], [place], [address]
== END 2016-07-20 23:59 | disposition home or self-care (01) ==
LOC: END 07:10
PROVIDERS: ATTEND Surgery
DX: Z12.11 Encounter for screening for malignant neoplasm of colon (principal); D12.2 Benign neoplasm of ascending colon; Z86.010 Personal history of colon polyps; K57.30 Diverticulosis of large intestine without perforation or abscess without bleeding
CPT/HCPCS: 43239; 45380; 88305; 99153; G0500; J7030

== ENCOUNTER 2016-11-05 05:34 | Emergency (ER) | payer MEDICARE ==
[~2016-11-05] VITALS: Ht 175.3 cm; Wt 79.5 kg
[~2016-11-05 05:34] MED LIST changes: -Sodium Chloride LOK Flush 10 mL Syringe IV PRN; -fentaNYL-PF 50 mCg/mL 2 mL Inj IVPUSH PRN
[2016-11-05 05:39] VITALS: BP 138/74; PULSE 69; RESP 17; O2SAT 69
[2016-11-05] MEDS ORDERED: 0.9% Sodium Chloride 1,000 ML IV ONE (06:13)
--- NOTE | 2016-11-05 06:13 | ED.REPORT ---
HPI-Abd Pain M 40 and Over Date of Service Nov 05, 2016 ED Provider: Gregorio Angeles MD Patient is a 76 year old male with a history of prostate cancer, GI bleed and recurrent partial small bowel obstruction who presents to the ED via EMS complaining of abdominal pain onset 2300 last night. Associated symptoms include nausea and vomiting. Patient reports that he has been able to pass gas. He denies fever, chest pain or shortness of breath. The patient reports that he has had similar upper abdominal pain that has been related to a bowel obstruction. Patient states the last time this happened he had an exploratory laparoscopy done. Nursing Notes Stated Complaint: ABDOMINAL PAIN Chief Complaint: Male Abdominal Pain Nursing Notes Reviewed: Yes Allergies: Coded Allergies: No Known Allergies (Verified , 07/19/16) Scheduled Aspirin (Aspirin) 81 Mg Tablet 81 MG PO DAILY Cholecalciferol (Vitamin D3) (Vitamin D3) 5,000 Unit Capsule 5,000 UNIT PO DAILY Hydrochlorothiazide (Hydrochlorothiazide) 25 Mg Tablet 25 MG PO DAILY Tamsulosin (Flomax) 0.4 Mg Capsule 0.4 MG PO DAILY Scheduled PRN Acetaminophen (Acetaminophen) 500 Mg Tablet 1,000 MG PO DAILY PRN PRN For Fever Ondansetron ODT (Ondansetron ODT) 4 Mg Tab.rapdis 4 MG PO QID PRN PRN For Nausea Oxycodone HCl/Acetaminophen 5-325 (Endocet 5-325) 1 Each Tablet 1-2 TABLET PO Q4H PRN PRN For Pain General Time Seen by MD: 06:13 Chief Complaint Abdominal pain Hx Obtained From: Patient Arrived By: Ambulance Sudden in Onset?: Yes Onset Occurred: Yesterday Symptom Duration: Since onset Location: : Abdomen lower Quality: Painful Radiation: : Abdomen lower Severity: Current: Moderate Similar Sx Previous: Yes Past Medical History Past Medical History Hypertension Hyperlipidemia Small bowel obstruction, recurrent Prostate CA s/p resection Hx of upper GI bleeding due to gastritis Past Surgical History Prostatectomy Laparoscopic abdominal exploratory surgery Family History Noncontributory Smoking History Former Smoker Social History Lives in [place] during the winter months Other Social History: Local resident Ambulatory Status Independent Review of Systems Constitutional: Denies: Chills, Fever Respiratory: Denies: Non-productive cough, Shortness of breath Cardiovascular: Denies: Chest pain GI: Reports: Abdominal pain, Nausea, Vomiting Complete sys rev & neg: except as marked. Skin: Denies Itching, Denies Rash Physical Exam Initial Vital Signs Vital Signs (First) Date Time Temp Pulse Resp B/P Pulse Ox O2 Delivery O2 Flow Rate FiO2 11/05/16 05:39 36.4 69 17 138/74 69 Room Air Initial VS: Reviewed General/Constitutional: Awake, Alert Respiratory / Chest: Atraumatic, Breath sounds NL, Breath sounds = bilat, No respiratory distress Cardiovascular: Heart rate NL, Regular rhythm, Heart sounds NL, No gallop, No murmurs, No rubs Abdomen: Atraumatic, Soft, Non-tender, BS normoactive, No distention Back: Atraumatic, Non-tender Head / Eyes: Atraumatic, Normocephalic, PERRL, EOMI Skin: Atraumatic, Color NL, No rash, Warm, Dry Neurologic: Oriented X3, Speech NL Psychiatric: Affect NL, Mood NL Interpretation & Diagnostics Lab Results Interpretation Result Diagram: 11/05/16 0545 11/05/16 0545 Test 11/05/16 05:45 11/05/16 06:36 White Blood Count 9.1th/mm3 (3.8-10.1) Red Blood Count 5.42mil/mm3 (4.40-5.80) Hemoglobin 17.3g/dL (13.8-17.2) Hematocrit 51.5% (41.0-50.0) Mean Corpuscular Volume 95.0fL (81-100) Mean Corpuscular Hemoglobin 31.9pg (27.0-35.0) Mean Corpuscular Hemoglobin Concent 33.6% (32.0-37.0) Red Cell Distribution Width 14.2% (12.3-15.4) Platelet Count 172bil/L (150-400) Neutrophils (%) (Auto) 76.4% (40-74) Lymphocytes (%) (Auto) 13.5% (14-46) Monocytes (%) (Auto) 7.8% (4-12) Eosinophils (%) (Auto) 2.0% (0-5) Basophils (%) (Auto) 0.2% (0-3) Sodium Level 140mEq/L (134-144) Potassium Level 4.2mEq/L (3.5-5.2) Chloride Level 100mEq/L (97-108) Carbon Dioxide Level 23mmol/L (18-29) Blood Urea Nitrogen 22mg/dL (8-27) Creatinine 1.05mg/dL (0.76-1.27) Estimat Glomerular Filtration Rate 73mL/min (>59) Glucose Level 122mg/dL (60-99) Calcium Level 9.7mg/dL (8.5-10.1) Magnesium Level 1.9mg/dL (1.6-2.6) Total Bilirubin 0.5mg/dL (0.0-1.2) Aspartate Amino Transf (AST/SGOT) 27U/L (0-50) Alanine Aminotransferase (ALT/SGPT) 19U/L (0-44) Alkaline Phosphatase 45U/L (25-160) Total Protein 7.9g/dL (6.4-8.4) Albumin 4.4g/dL (3.4-5.0) Lipase 53U/L (13-60) Urine Color Yellow (YELLOW) Urine Appearance Clear (CLEAR,HAZY) Urine pH 5.0 (5.0-8.0) Urine Specific [place] 1.025 (1.003-1.035) Urine Protein Negativemg/dL (NEG,TRACE) Urine Glucose (UA) Negativemg/dL (NEGATIVE) Urine Ketones Negativemg/dL (NEGATIVE) Urine Occult Blood Large (NEGATIVE) Urine Nitrite Negative (NEGATIVE) Urine Bilirubin Negative (NEGATIVE) Urine Urobilinogen Normalmg/dL (NORMAL) Urine Leukocyte Esterase Negative (NEGATIVE) Urine RBC 11-50/hpf (0-2) Urine WBC 0-5/hpf (0-5) Urine Epithelial Cells Few/hpf (NONE-MOD) Urine Crystals Uric acid crystals (NONE Urine Bacteria None/hpf (NONE-FEW) Urine Hyaline Casts None/lpf (NONE) Urine Granular Casts None seen (NONE SEEN) Urine Waxy Casts None seen (NONE SEEN) Urine Red Blood Cell Casts None seen (NONE SEEN) Urine White Blood Cell Casts None seen (NONE SEEN) Urine Mucus None seen (None Seen) Urine Trichomonas None seen (NONE SEEN) Urine Yeast None (NONE SEEN) Urinalysis Comment None Urine Culture Reflexed Not indicated ECG Interpretation Time: 06:29 Interpreted by: ED physician Normal ECG Interpretation: Normal rate (68), Normal sinus rhythm CT Abd / Pelvis Interpretation IMPRESSION: 1. Mildly dilated loops of small bowel with air-fluid levels but without a focal transition point likely represent an ileus or gastroenteritis. 2. Small amount of pelvic free fluid is likely reactive. 3. Small obstructing mid to distal left ureteral stone with minimal left hydronephrosis. 4. Progressively enlarging left lower lobe subpleural nodule measuring up to 1.1 cm. Recommend further evaluation with dedicated chest CT. Final interpretation was discussed with Dr. Angeles on 11/05/16 at 10 AM. Dictated by: Hector Mcgee M.D. on 11/05/2016 at 9:54 Approved by: Hector Mcgee M.D. on 11/05/2016 at 10:07 Interpretation / Wet Read by: Interpret - Radiologist Re-Eval/Medical Decision Time of Eval: 08:20 Re-Evaluation/Progress Note: Patient is now symptom free and passing gas. Discussed option of admit vs discharge. Patient would like to try an oral challenge and be discharged. Time of Eval: 09:17 Re-Evaluation/Progress Note: Patient tolerated liquid PO challenge. Now seeing if he can tolerate solids. Time of Eval: 10:43 Patient Status: Condition improved Re-Evaluation/Progress Note: Patient reports feeling improved and would like to be discharged. Discussed CT results and plan for discharge. Patient understands and agrees to plan. All questions were addressed. Counseled Regarding: Diagnosis, Lab results, Need for follow-up, When/why to return to ED Discharge & Departure Primary Impression: Generalized abdominal pain Additional Impressions: Left ureteral stone Pulmonary nodule Disposition: Home Vital Signs - All Vital Signs Date Time Temp Pulse Resp B/P Pulse Ox O2 Delivery O2 Flow Rate FiO2 11/05/16 11:01 36.6 63 132/82 95 Room Air 11/05/16 07:33 68 17 137/86 98 Room Air 11/05/16 05:39 36.4 69 17 138/74 69 Room Air )( All Prior VS Reviewed: Yes Condition: Stable Patient Instructions: Renal Colic (ED) Additional Instructions: Emergency Department evaluation included interview, examination labs CT of abdomen and pelvis and observation in the emergency department. Given tolerance of oral intake, and resolution of pain and nausea, it is felt safe to discharge. It is possible that this is an early bowel obstruction that has resolved. Imaging also demonstrates a small left ureteral stone which hopefully will pass spontaneously. Strain urine, follow up with urology, use Percocet as needed for pain and ondansetron as needed for nausea. CT scan also incidentally found an enlarging lung nodule. Contact primary care regarding this for follow-up and further evaluation. Return to emergency department for uncontrolled pain, frequent vomiting, fevers or other new concerning symptoms. Thank you for trusting us with your care today Referrals: Rahul Cazares MD (PCP) Latoya Thrasher MD Attestation Portions of this note were transcribed by Shayy Holliday. I, Dr. Angeles personally performed the history, physical exam and medical decision-making; I reviewed and confirmed the accuracy of the information in the transcribed note. Signed by: Letty Valderrama, 11/05/16 copies to: Latoya Thrasher MD; Rahul Cazares MD, Donald L MD Nov 05, 2016 06:13 Francisca Holliday Nov 05, 2016 06:27
[2016-11-05] MEDS ORDERED: HYDROmorphone 0.5 mg/0.5 mL iSecure Syringe IVPUSH PRN (06:15)
[2016-11-05] MEDS ORDERED: Ondansetron 2 mg/mL 2 mL Inj IVPUSH PRN (06:15)
[2016-11-05 06:26] LABS: BASOPHILS % (AUTO) 0.2 % (0-3); MONOCYTES % (AUTO) 7.8 % (4-12); Mean Corpuscular Hemoglobin 31.9 pg (27.0-35.0); NEUTROPHILS % (AUTO) 76.4 % (40-74); Platelet Count 172 bil/L (150-400)
[2016-11-05 06:36] LABS: Magnesium 1.9 mg/dL (1.6-2.6)
[2016-11-05 07:14] LABS: APPEARANCE,URINE CLEAR (CLEAR,HAZY); COLOR,URINE YELLOW (YELLOW); OCCULT BLOOD,URINE LARGE (NEGATIVE); UROBILINOGEN,URINE NORMAL (NORMAL)
[2016-11-05 07:33] VITALS: BP 137/86; PULSE 68; RESP 17; O2SAT 98
--- NOTE | 2016-11-05 10:09 | DRSVH ---
PROCEDURE: CT ABDOMEN AND PELVIS WITH CONTRAST ([id number]) INDICATIONS: Abdominal pain TECHNIQUE: After the administration of oral and intravenous contrast, 5 mm thick sections acquired from the diap hragms to the symphysis. 5 mm thick coronal and sagittal reformats were performed. For radiation do se reduction, the following was used: automated exposure control, adjustment of mA and/or kV accordi ng to patient size. COMPARISON: [facility], CT, CT ABD PELVIS W CON, 11/07/2015, 11:08. Outside Film, CT, CT ABD PELVIS W CON, 02/07/2016, 6:42. Outside Film, CT, CT ABD PELVIS W CON, 04/05/2016, 3:43. [facility], CT, CT ABD PELVIS W CON, 06/24/2016, 11:54. FINDINGS: Image quality: There is metallic streak artifact associated with patient's surgical clips in the pelv is. ABDOMEN: Lung bases: There is mild dependent atelectasis. There is a small subpleural nodule in the left lowe r lobe peripherally measuring up to 1.1 cm which has progressively increased compared to the prior st udies. Heart size is normal. Solid organs: Liver and spleen are normal in size and enhancement. Gallbladder appears within javed l limits without calcified gallstones. Biliary system is non-dilated. Pancreas enhances normally. No adrenal nodules. There are multiple bilateral parapelvic renal cysts. There is minimal dilatatio n of the left renal collecting system and proximal left ureter with a small obstructing stone in the mid to distal left ureter measuring 3-4 mm. There are 4 small nonobstructing right renal stones frankie uring up to 4 mm within the upper pole. There is no right hydronephrosis. Peritoneum and bowel: There are a few mildly fluid distended loops of small bowel in the lower abdom en involving the ileum, measuring up to approximately 3.4 cm in diameter with air-fluid levels. Ther e is no single transition point, with a few nondistended segments in between the dilated segments. T he colon demonstrates normal caliber and wall thickness. The appendix is normal in appearance. Ther e is a small amount of free fluid in the pelvis. Nodes and vessels: No retroperitoneal or mesenteric adenopathy. Aorta and inferior vena cava are no rmal in caliber. Miscellaneous: No ventral hernias. PELVIS: Genitourinary: The urinary bladder is incompletely distended . Miscellaneous: There are multiple surgical clips in the pelvis redemonstrated. No inguinal hernias or adenopathy. Bones: No suspicious bony lesions. There is grade 1 anterolisthesis of L5 on S1 with bilateral pars defects redemonstrated. No vertebral body compression fractures. IMPRESSION: 1. Mildly dilated loops of small bowel with air-fluid levels but without a focal transition point li kristyn represent an ileus or gastroenteritis. 2. Small amount of pelvic free fluid is likely reactive. 3. Small obstructing mid to distal left ureteral stone with minimal left hydronephrosis. 4. Progressively enlarging left lower lobe subpleural nodule measuring up to 1.1 cm. Recommend furt her evaluation with dedicated chest CT. Final interpretation was discussed with Dr. Angeles on 11/05/16 at 10 AM. Dictated by: Hector Mcgee M.D. on 11/05/2016 at 9:54 Approved by: Hector Mcgee M.D. on 11/05/2016 at 10:07
[2016-11-05] MEDS ORDERED: ONDA4TAB12 PO (10:53)
[2016-11-05] MEDS ORDERED: OXYC-407 PO (10:53)
[2016-11-05 11:01] VITALS: BP 132/82; PULSE 63; O2SAT 95
== END 2016-11-05 10:59 | disposition home or self-care (01) ==
LOC: SED 05:34
DX: R10.84 Generalized abdominal pain (principal); N20.1 Calculus of ureter; R91.1 Solitary pulmonary nodule; I10 Essential (primary) hypertension; E78.5 Hyperlipidemia, unspecified; Z87.891 Personal history of nicotine dependence; Z85.46 Personal history of malignant neoplasm of prostate; Z79.82 Long term (current) use of aspirin
CPT/HCPCS: 36415; 74177; 80053; 81000; 83690; 83735; 85025; 93005; 96361; 96374; 96375; 99285; J1170; J2405; J7030; Q9967